=== PATIENT | male | born 1980 | race Caucasian/White ===

== ENCOUNTER 2017-12-19 07:53 | Inpatient (IN) | payer SELFPAY ==
[~2017-12-19] VITALS: Ht 167.6 cm; Wt 67.7 kg
[2017-12-19] VITALS (9 sets, daily range): BP systolic 111–130; BP diastolic 57–85; PULSE 82–141; RESP 16–18; TEMP 97.4–98.9; O2SAT 98–100
[2017-12-19] MEDS ORDERED: SODIUM CHLOR 0.9% 1000 ML INJ 1,000 ML IV ONE ×4 (08:04→11:15)
--- NOTE | 2017-12-19 08:14 | PD ---
HPI Chief Complaint: Psychiatric Symptoms Time Seen by Provider: 07:55 Travel History International Travel<30 days: No Contact w/Intl Traveler<30days: No Traveled to known affect area: No History of Present Illness HPI The patient is a 37-year-old male who presents to the emergency department via EMS with police as a Enciso act. According [place] the police [place] due to substance was taken. The patient was unable to control his body movements her mind according to the police affidavit. The patient was finally able to tell the police that he took drugs. The police therefore, placed the patient under a Enciso act. The patient admits using cocaine, Barby, methamphetamines, and heroin. He denies any current physical complaints, however, is a somewhat limited historian who appears to be under the influence of drugs. The patient is notably diaphoretic and tachycardic, he also appears somewhat agitated. 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 [facility] Past Medical History Narrative Medical Polysubstance abuse Past Surgical History Narrative Surgical Left leg surgery Social History Tobacco Use: Yes Substance Use: Yes Allergies-Medications (Allergen,Severity, Reaction): Coded Allergies: No Known Allergies (Unverified , 12/19/17) Review of Systems ROS Limitations: Clinical Condition Except as stated in HPI: all other systems reviewed are Neg Cardiovascular: Positive: Diaphoresis, No: Chest Pain or Discomfort Respiratory: No: Shortness of Breath Musculoskeletal: No: Myalgias Neurologic: Positive: Change in Mentation Psychiatric: Positive: Substance Abuse, No: Suicidal Ideations, Homicidal Ideation Physical Exam Narrative GENERAL: Awake, alert, agitated 37-year-old male who appears his stated age, somewhat diaphoretic. SKIN: Diaphoretic, covered in Infante. HEAD: Atraumatic. Normocephalic. EYES: Pupils equal and round. Mild injection bilaterally. ENT: No nasal bleeding or discharge. Dry mucous membranes. NECK: Trachea midline. No JVD. CARDIOVASCULAR: Regular, tachycardic with a heart rate in the 140s. Pulmonary: Bilateral breath sounds present. GASTROINTESTINAL: Abdomen soft, non-tender, nondistended. MUSCULOSKELETAL: No obvious deformities. No clubbing. No cyanosis. No edema. Well-healed scar in the lateral aspect of the left lower extremity. NEUROLOGICAL: Awake and alert. No obvious cranial nerve deficits. Motor grossly within normal limits. Normal speech. PSYCHIATRIC: Appears agitated. Data Data Last Documented VS Vital Signs Date Time Temp Pulse Resp B/P (MAP) Pulse Ox O2 Delivery O2 Flow Rate FiO2 12/19/17 13:10 108 18 112/66 (81) 100 Nasal Cannula 2.00 12/19/17 08:38 98.9 Orders Orders Electrocardiogram (12/19/17 08:04) Complete Blood Count With Diff (12/19/17 08:04) Comprehensive Metabolic Panel (12/19/17 08:04) Prothrombin Time / Inr (Pt) (12/19/17 08:04) Act Partial Throm Time (Ptt) (12/19/17 08:04) Urinalysis - C+S If Indicated (12/19/17 08:04) Iv Access Insert/Monitor (12/19/17 08:04) Ecg Monitoring (12/19/17 08:04) Oximetry (12/19/17 08:04) Psych Screen (12/19/17 08:04) Lorazepam Inj (Ativan Inj) (12/19/17 08:15) Sodium Chloride 0.9% Flush (Ns Flush) (12/19/17 08:15) Sodium Chlor 0.9% 1000 Ml Inj (Ns 1000 M (12/19/17 08:04) Drug Screen, Random Urine (12/19/17 08:04) Alcohol (Ethanol) (12/19/17 08:04) Salicylates (Aspirin) (12/19/17 08:04) Tylenol (Acetaminophen) (12/19/17 08:04) Creatine Kinase (Cpk) (12/19/17 08:04) Sodium Chlor 0.9% 1000 Ml Inj (Ns 1000 M (12/19/17 08:15) Lorazepam Inj (Ativan Inj) (12/19/17 08:15) Restraints Non-Violent ABEBE.Q3H (12/19/17 08:46) CKMB (12/19/17 08:16) CKMB% (12/19/17 08:16) Dextrose 50% In Dora (Syr) Inj (D50w (Syr (12/19/17 09:50) Dextrose 50% In Dora (Syr) Inj (D50w (Syr (12/19/17 10:00) Sodium Chlor 0.9% 1000 Ml Inj (Ns 1000 M (12/19/17 10:15) Basic Metabolic Panel (Bmp) (12/19/17 14:00) Creatine Kinase (Cpk) (12/19/17 14:00) Complete Blood Count With Diff (12/19/17 14:00) Sodium Chlor 0.9% 1000 Ml Inj (Ns 1000 M (12/19/17 11:15) Lorazepam Inj (Ativan Inj) (12/19/17 11:45) CKMB (12/19/17 14:28) CKMB% (12/19/17 14:28) Sodium Chlor 0.9% 1000 Ml Inj (Ns 1000 M (12/19/17 15:45) Admit Order (Ed Use Only) (12/19/17 16:03) Labs Laboratory Tests Test 12/19/17 08:16 12/19/17 08:31 12/19/17 14:28 White Blood Count 26.2 TH/MM3 Red Blood Count 5.11 MIL/MM3 Hemoglobin 15.6 GM/DL Hematocrit 46.2 % Mean Corpuscular Volume 90.5 FL Mean Corpuscular Hemoglobin 30.6 PG Mean Corpuscular Hemoglobin Concent 33.8 % Red Cell Distribution Width 13.3 % Platelet Count 328 TH/MM3 Mean Platelet Volume 8.4 FL Neutrophils (%) (Auto) 79.2 % Lymphocytes (%) (Auto) 4.0 % Monocytes (%) (Auto) 16.4 % Eosinophils (%) (Auto) 0.0 % Basophils (%) (Auto) 0.4 % Neutrophils # (Auto) 20.8 TH/MM3 Lymphocytes # (Auto) 1.0 TH/MM3 Monocytes # (Auto) 4.3 TH/MM3 Eosinophils # (Auto) 0.0 TH/MM3 Basophils # (Auto) 0.1 TH/MM3 CBC Comment AUTO DIFF Differential Comment AUTO DIFF CONFIRMED Prothrombin Time 10.7 SEC Prothromb Time International Ratio 1.1 RATIO Activated Partial Thromboplast Time 21.2 SEC Blood Urea Nitrogen 29 MG/DL 31 MG/DL Creatinine 2.35 MG/DL 1.64 MG/DL Random Glucose 41 MG/DL 83 MG/DL Total Protein 8.5 GM/DL Albumin 4.4 GM/DL Calcium Level 9.2 MG/DL 7.6 MG/DL Alkaline Phosphatase 75 U/L Aspartate Amino Transf (AST/SGOT) 78 U/L Alanine Aminotransferase (ALT/SGPT) 69 U/L Total Bilirubin 1.9 MG/DL Sodium Level 145 MEQ/L 145 MEQ/L Potassium Level 3.8 MEQ/L 5.2 MEQ/L Chloride Level 108 MEQ/L 116 MEQ/L Carbon Dioxide Level 21.0 MEQ/L 17.4 MEQ/L Anion Gap 16 MEQ/L 12 MEQ/L Estimat Glomerular Filtration Rate 31 ML/MIN 47 ML/MIN Total Creatine Kinase 717 U/L 2550 U/L Creatine Kinase MB 22.5 NG/ML 80.2 NG/ML Creatine Kinase MB % 3.1 % 3.1 % Salicylates Level LESS THAN 1.7 MG/DL Acetaminophen Level LESS THAN 2.0 MCG/ML Ethyl Alcohol Level LESS THAN 3 MG/DL Urine Color YELLOW Urine Turbidity HAZY Urine pH 6.5 Urine Specific [place] 1.035 Urine Protein 100 mg/dL Urine Glucose (UA) 70 mg/dL Urine Ketones TRACE mg/dL Urine Occult Blood TRACE Urine Nitrite NEG Urine Bilirubin NEG Urine Urobilinogen LESS THAN 2.0 MG/DL Urine Leukocyte Esterase NEG Urine RBC 2 /hpf Urine WBC 3 /hpf Urine Squamous Epithelial Cells <1 /hpf Urine Amorphous Sediment RARE Urine Mucus FEW /lpf Microscopic Urinalysis Comment CULT NOT INDICATED Urine Opiates Screen NEG Urine Barbiturates Screen NEG Urine Amphetamines Screen POS Urine Benzodiazepines Screen NEG Urine Cocaine Screen POS Urine Cannabinoids Screen NEG MDM Medical Decision Making Medical Screen Exam Complete: Yes Emergency Medical Condition: Yes Medical Record Reviewed: Yes Interpretation(s) EKG reveals sinus tachycardia with a heart rate of 144. Laboratory Tests Test 12/19/17 08:16 12/19/17 08:31 12/19/17 14:28 White Blood Count 26.2 TH/MM3 Red Blood Count 5.11 MIL/MM3 Hemoglobin 15.6 GM/DL Hematocrit 46.2 % Mean Corpuscular Volume 90.5 FL Mean Corpuscular Hemoglobin 30.6 PG Mean Corpuscular Hemoglobin Concent 33.8 % Red Cell Distribution Width 13.3 % Platelet Count 328 TH/MM3 Mean Platelet Volume 8.4 FL Neutrophils (%) (Auto) 79.2 % Lymphocytes (%) (Auto) 4.0 % Monocytes (%) (Auto) 16.4 % Eosinophils (%) (Auto) 0.0 % Basophils (%) (Auto) 0.4 % Neutrophils # (Auto) 20.8 TH/MM3 Lymphocytes # (Auto) 1.0 TH/MM3 Monocytes # (Auto) 4.3 TH/MM3 Eosinophils # (Auto) 0.0 TH/MM3 Basophils # (Auto) 0.1 TH/MM3 CBC Comment AUTO DIFF Differential Comment AUTO DIFF CONFIRMED Prothrombin Time 10.7 SEC Prothromb Time International Ratio 1.1 RATIO Activated Partial Thromboplast Time 21.2 SEC Blood Urea Nitrogen 29 MG/DL 31 MG/DL Creatinine 2.35 MG/DL 1.64 MG/DL Random Glucose 41 MG/DL 83 MG/DL Total Protein 8.5 GM/DL Albumin 4.4 GM/DL Calcium Level 9.2 MG/DL 7.6 MG/DL Alkaline Phosphatase 75 U/L Aspartate Amino Transf (AST/SGOT) 78 U/L Alanine Aminotransferase (ALT/SGPT) 69 U/L Total Bilirubin 1.9 MG/DL Sodium Level 145 MEQ/L 145 MEQ/L Potassium Level 3.8 MEQ/L 5.2 MEQ/L Chloride Level 108 MEQ/L 116 MEQ/L Carbon Dioxide Level 21.0 MEQ/L 17.4 MEQ/L Anion Gap 16 MEQ/L 12 MEQ/L Estimat Glomerular Filtration Rate 31 ML/MIN 47 ML/MIN Total Creatine Kinase 717 U/L 2550 U/L Creatine Kinase MB 22.5 NG/ML Creatine Kinase MB % 3.1 % Salicylates Level LESS THAN 1.7 MG/DL Acetaminophen Level LESS THAN 2.0 MCG/ML Ethyl Alcohol Level LESS THAN 3 MG/DL Urine Color YELLOW Urine Turbidity HAZY Urine pH 6.5 Urine Specific [place] 1.035 Urine Protein 100 mg/dL Urine Glucose (UA) 70 mg/dL Urine Ketones TRACE mg/dL Urine Occult Blood TRACE Urine Nitrite NEG Urine Bilirubin NEG Urine Urobilinogen LESS THAN 2.0 MG/DL Urine Leukocyte Esterase NEG Urine RBC 2 /hpf Urine WBC 3 /hpf Urine Squamous Epithelial Cells <1 /hpf Urine Amorphous Sediment RARE Urine Mucus FEW /lpf Microscopic Urinalysis Comment CULT NOT INDICATED Urine Opiates Screen NEG Urine Barbiturates Screen NEG Urine Amphetamines Screen POS Urine Benzodiazepines Screen NEG Urine Cocaine Screen POS Urine Cannabinoids Screen NEG Differential Diagnosis Differential diagnosis includes polysubstance abuse, dehydration, rhabdomyolysis , substance-induced mood disorder, psychosis, electrolyte abnormality, encephalopathy. Narrative Course IV was established, labs are drawn and sent, the patient was placed on cardiac telemetry monitoring and continuous pulse oximetry monitoring. The patient was administered Ativan 2 mg intravenously. The patient was also administered 2 L of IV fluids. CPK, salicylate, and acetaminophen level was sent to lab. Psychiatric evaluation was ordered. The patient required a second dose of Ativan 2 mg intravenously and soft restraints secondary to his agitation. The patient's CPK was 717, creatinine was greater than 2. The patient was administered a total of 4 L of IV fluids. A repeat BMP was performed at 2 PM. The patient's kidney function did improve, however, his CK is now greater than 2600. The patient's potassium also went from 3.8 to 5.2 despite 4 L of IV fluids. It appears the patient continues to have muscle breakdown, will require continued IV fluids and monitoring of his potassium level, creatinine, and CPK. Therefore, the patient will be admitted to medical service. I discussed the patient with Dr. Kahn who agrees with admission. Physician Communication Physician Communication I discussed the patient with Dr. Kahn who agrees with admission. Diagnosis Primary Impression: Acute kidney injury Additional Impressions: Rhabdomyolysis Qualified Codes: M62.82 - Rhabdomyolysis Polysubstance abuse Substance induced mood disorder Admitting Information Admitting Physician Requests: Admit Condition: Stable Papito Zhang MD Dec 19, 2017 08:14
[2017-12-19] MEDS ORDERED: LORazepam 2 MG/ML VIAL IV PUSH ONE ×3 (08:15→11:45)
[2017-12-19] MEDS ORDERED: SODIUM CHLORIDE 0.9% FLUSH 10 ML FLUSH IVF PRN (08:15)
[2017-12-19 09:15] LABS: AUTOMATED NEUTROPHIL # 20.8 TH/MM3 (1.8-7.7); BASOPHIL # 0.1 TH/MM3 (0-0.2); BASOPHIL % 0.4 % (0.0-2.0); HEMATOCRIT 46.2 % (39.0-51.0); HEMOGLOBIN 15.6 GM/DL (13.0-17.0); MEAN CELL VOLUME 90.5 FL (80.0-100.0); MEAN CORPUSCULAR HEMOGLOBIN 30.6 PG (27.0-34.0); MEAN CORPUSCULAR HGB CONC 33.8 % (32.0-36.0); MEAN PLATELET VOLUME 8.4 FL (7.0-11.0); MONO % 16.4 % (0.0-8.0); MONOCYTE # 4.3 TH/MM3 (0-0.9); NEUT % 79.2 % (16.0-70.0); PLATELET COUNT 328 TH/MM3 (150-450); RED BLOOD COUNT 5.11 MIL/MM3 (4.50-5.90); RED CELL DISTRIBUTION WIDTH 13.3 % (11.6-17.2); WHITE BLOOD COUNT 26.2 TH/MM3 (4.0-11.0)
[2017-12-19 09:18] LABS: AMORPHOUS SEDIMENT, URINE RARE; BILIRUBIN, URINE NEG (NEG); BLOOD, URINE TRACE (NEG); GLUCOSE,URINE 70 mg/dL (NEG); KETONE, URINE TRACE mg/dL (NEG); MUCUS URINE FEW /lpf (OCC); NITRITE,URINE NEG (NEG); PH, URINE 6.5 (5.0-8.5); SQUAMOUS EPITHELIAL CELL URINE <1 /hpf (0-5); URINE COLOR YELLOW (YELLW/STRAW); URINE LEUKOCYTE ESTERASE NEG (NEG)
[2017-12-19 09:23] LABS: INTERNATIONAL NORMALIZED RATIO 1.1 RATIO; PROTHROMBIN TIME - PATIENT 10.7 SEC (9.8-11.6)
[2017-12-19 09:46] LABS: ALBUMIN 4.4 GM/DL (3.4-5.0); ALKALINE PHOSPHATASE 75 U/L (45-117); ALT (GPT) 69 U/L (12-78); AST (GOT) 78 U/L (15-37); BLOOD UREA NITROGEN 29 MG/DL (7-18); CALCIUM 9.2 MG/DL (8.5-10.1); CHLORIDE 108 MEQ/L (98-107); CREATININE 2.35 MG/DL (0.60-1.30); GLOMERULAR FILTRATION RATE 31 ML/MIN (>89); SODIUM (NA) 145 MEQ/L (136-145); TOTAL BILIRUBIN ADULT 1.9 MG/DL (0.2-1.0); TOTAL PROTEIN 8.5 GM/DL (6.4-8.2)
[2017-12-19 09:47] LABS: ACETAMINOPHEN LESS THAN 2.0 MCG/ML (10.0-30.0)
[2017-12-19 09:49] LABS: GLUCOSE,RANDOM 41 MG/DL (74-106)
[2017-12-19] MEDS ORDERED: DEXTROSE 50% IN WATER 50 ML SYRINGE ONE (09:50)
[2017-12-19] MEDS ORDERED: DEXTROSE 50% IN WATER 50 ML SYRINGE IV PUSH ONE (10:00)
[2017-12-19 15:18] LABS: BICARBONATE 17.4 MEQ/L (21.0-32.0); CALCIUM 7.6 MG/DL (8.5-10.1); CREATININE 1.64 MG/DL (0.60-1.30)
[2017-12-19] MEDS: SODIUM CHLOR 0.9% 1000 ML INJ 1,000 ML IV SCH ×2 (16:37→23:16)
--- NOTE | 2017-12-19 17:07 | HHI.HP ---
[facility] Primary Care Physician No Primary Care Physician Admission Diagnosis Rhabdomyolysis, acute kidney injury, polysubstance abuse Diagnoses: Chief Complaint: Fernie acted for confusion Travel History International Travel<30 Days: No Contact w/Intl Traveler <30 Da: No Traveled to Known Affected Are: No History of Present Illness This is a 37-year-old male presented emergency department Fernie acted after the police found the patient unable to communicate but with spontaneous movement of extremities. The patient admitted to using drugs hence the patient was Enciso acted and then was brought to the hospital. Patient admits to using cocaine, Barby, methamphetamine and heroin. No current complaints. Patient is awake, alert and oriented but a little confused, somewhat a poor historian under the influence of drugs. He is mildly diaphoretic and tachycardic but otherwise unremarkable. He further denies any chest pain, shortness of breath, nausea, vomiting, abdominal pain or headaches. Review of Systems ROS Limitations: Altered Mental Status, Poor Historian Past Family Social History Past Medical History Polysubstance abuse Past Surgical History Left ankle surgery Reported Medications None Allergies: Coded Allergies: No Known Allergies (Unverified , 12/19/17) Family History Cannot remember, difficult to obtain because of patient's mental status Social History He smokes, cannot quantify at this point, drinks alcohol. Uses multiple illicit drugs. Physical Exam Vital Signs Vital Signs Date Time Temp Pulse Resp B/P (MAP) Pulse Ox O2 Delivery O2 Flow Rate FiO2 12/19/17 13:10 108 18 112/66 (81) 100 Nasal Cannula 2.00 12/19/17 11:09 118 18 111/70 (84) 100 Nasal Cannula 2.00 12/19/17 10:18 123 18 118/57 (77) 100 Room Air 12/19/17 09:07 138 16 118/57 (77) 98 Nasal Cannula 2.00 12/19/17 08:39 140 18 99 Nasal Cannula 2.00 12/19/17 08:38 98.9 141 18 130/72 (91) 98 Room Air Physical Exam Not in distress, in mild confusional state but oriented, mildly diaphoretic. PERRL, pink conjunctiva, mild injection, covered in Infante. Nose without bleeding, airway patent, oropharynx clear, dry mucous membranes Supple neck Tachycardic, regular rhythm, no murmurs gallops or rubs appreciated. Clear to auscultation and symmetric bilaterally, normal respiratory effort. Normal bowel sounds, soft, non-tender, nondistended, no guarding. Extremities without clubbing, cyanosis, or edema. Well-healed scar in the lateral aspect of the left lower extremities. No rash of generalized distribution. Skin is warm and dry. AAO ended to place and person but not to date, knows the president of [facility]. No cranial nerve deficits, moves all 4 extremities, no focal neurologic deficits, normal speech. Mildly agitated and confused. Laboratory Laboratory Tests Test 12/19/17 08:16 12/19/17 08:31 12/19/17 14:28 White Blood Count 26.2 Red Blood Count 5.11 Hemoglobin 15.6 Hematocrit 46.2 Mean Corpuscular Volume 90.5 Mean Corpuscular Hemoglobin 30.6 Mean Corpuscular Hemoglobin Concent 33.8 Red Cell Distribution Width 13.3 Platelet Count 328 Mean Platelet Volume 8.4 Neutrophils (%) (Auto) 79.2 Lymphocytes (%) (Auto) 4.0 Monocytes (%) (Auto) 16.4 Eosinophils (%) (Auto) 0.0 Basophils (%) (Auto) 0.4 Neutrophils # (Auto) 20.8 Lymphocytes # (Auto) 1.0 Monocytes # (Auto) 4.3 Eosinophils # (Auto) 0.0 Basophils # (Auto) 0.1 CBC Comment AUTO DIFF Differential Comment AUTO DIFF CONFIRMED Prothrombin Time 10.7 Prothromb Time International Ratio 1.1 Activated Partial Thromboplast Time 21.2 Blood Urea Nitrogen 29 31 Creatinine 2.35 1.64 Random Glucose 41 83 Total Protein 8.5 Albumin 4.4 Calcium Level 9.2 7.6 Alkaline Phosphatase 75 Aspartate Amino Transf (AST/SGOT) 78 Alanine Aminotransferase (ALT/SGPT) 69 Total Bilirubin 1.9 Sodium Level 145 145 Potassium Level 3.8 5.2 Chloride Level 108 116 Carbon Dioxide Level 21.0 17.4 Anion Gap 16 12 Estimat Glomerular Filtration Rate 31 47 Total Creatine Kinase 717 2550 Creatine Kinase MB 22.5 80.2 Creatine Kinase MB % 3.1 3.1 Salicylates Level LESS THAN 1.7 Acetaminophen Level LESS THAN 2.0 Ethyl Alcohol Level LESS THAN 3 Urine Color YELLOW Urine Turbidity HAZY Urine pH 6.5 Urine Specific [place] 1.035 Urine Protein 100 Urine Glucose (UA) 70 Urine Ketones TRACE Urine Occult Blood TRACE Urine Nitrite NEG Urine Bilirubin NEG Urine Urobilinogen LESS THAN 2.0 Urine Leukocyte Esterase NEG Urine RBC 2 Urine WBC 3 Urine Squamous Epithelial Cells <1 Urine Amorphous Sediment RARE Urine Mucus FEW Microscopic Urinalysis Comment CULT NOT INDICATED Urine Opiates Screen NEG Urine Barbiturates Screen NEG Urine Amphetamines Screen POS Urine Benzodiazepines Screen NEG Urine Cocaine Screen POS Urine Cannabinoids Screen NEG Result Diagram: 12/19/1716 12/19/17 1428 Caprini VTE Risk Assessment Caprini VTE Risk Assessment: No/Low Risk (score <= 1) Caprini Risk Assessment Model Point Value = 1 Point Value = 2 Point Value = 3 Point Value = 5 Age 41-60 Minor surgery BMI > 25 kg/m2 Swollen legs Varicose veins or History of unexplained or recurrent spontaneous Oral contraceptives or hormone replacement Sepsis (< 1 month) Serious lung disease, including pneumonia (< 1 month) Abnormal pulmonary function Acute myocardial infarction Congestive heart failure (< 1 month) History of inflammatory bowel disease Medical patient at bed rest Age 61-74 Arthroscopic surgery Major open surgery (> 45 min) Laparoscopic surgery (> 45 min) Malignancy Confined to bed (> 72 hours) Immobilizing plaster cast Central venous access Age >= 75 History of VTE Family history of VTE Factor V Leiden Prothrombin [id number] Lupus anticoagulant Anticardiolipin antibodies Elevated serum homocysteine Heparin-induced thrombocytopenia Other congenital or acquired thrombophilia Stroke (< 1 month) Elective arthroplasty Hip, pelvis, or leg fracture Acute spinal cord injury (< 1 month) Prophylaxis Regimen Total Risk Factor Score Risk Level Prophylaxis Regimen 0-1 Low Early ambulation 2 Moderate Order ONE of the following: *Sequential Compression Device (SCD) *Heparin 5000 units SQ BID 3-4 Higher Order ONE of the following medications: *Heparin 5000 units SQ TID *Enoxaparin/Lovenox 40 mg SQ daily (WT < 150 kg, CrCl > 30 mL/min) *Enoxaparin/Lovenox 30 mg SQ daily (WT < 150 kg, CrCl > 10-29 mL/min) *Enoxaparin/Lovenox 30 mg SQ BID (WT < 150 kg, CrCl > 30 mL/min) AND/OR *Sequential Compression Device (SCD) 5 or more Highest Order ONE of the following medications: *Heparin 5000 units SQ TID (Preferred with Epidurals) *Enoxaparin/Lovenox 40 mg SQ daily (WT < 150 kg, CrCl > 30 mL/min) *Enoxaparin/Lovenox 30 mg SQ daily (WT < 150 kg, CrCl > 10-29 mL/min) *Enoxaparin/Lovenox 30 mg SQ BID (WT < 150 kg, CrCl > 30 mL/min) AND *Sequential Compression Device (SCD) Assessment and Plan Assessment and Plan This is a 37-year-old male with history of polysubstance abuse admitted for agitation because of substance abuse Acute renal failure secondary to rhabdomyolysis-after 4 L of fluids, patient's creatinine is better but CK and potassium still increasing denoting continued my site breakdown. Continue IVF with LR, recheck CK and BMP tomorrow. EKG showed sinus tachycardia. Monitor urine output. Toxic metabolic encephalopathy-secondary to drug use, Fernie reza, consult psychiatry, start on Ativan as needed IV. Polysubstance abuse-tox screen positive for amphetamine, cocaine, negative for Tylenol and salicylates. Hyperkalemia-recheck potassium in 6 hours, IVF as above. Metabolic acidosis-IVF as above Hypercalcemia-replaced Leukocytosis-likely secondary to physiological stress DVT prophylaxis: Low risk Physician Certification 2 Midnight Certification Type: Admission for Inpatient Services Order for Inpatient Services The services are ordered in accordance with Medicare regulations or non- Medicare payer requirements, as applicable. In the case of services not specified as inpatient-only, they are appropriately provided as inpatient services in accordance with the 2-midnight benchmark. Estimated LOS (days): 2 days is the estimated time the patient will need to remain in the hospital, assuming treatment plan goals are met and no additional complications. Post-Hospital Plan: Home Artis Kahn MD Dec 19, 2017 17:06
[2017-12-19] MEDS ORDERED: LACTULOSE SYRUP 20 GM/30 ML CUP PO PRN (17:15)
[2017-12-19] MEDS ORDERED: LORazepam 2 MG/ML VIAL IV PUSH PRN (17:15)
[2017-12-19] MEDS ORDERED: SODIUM CHLORIDE 0.9% FLUSH 10 ML FLUSH IV FLUSH PRN (17:15)
[2017-12-19] MEDS ORDERED: ACETAMINOPHEN 325 MG TAB PO PRN (17:15)
[2017-12-19] MEDS ORDERED: NALOXONE HCL 0.4 MG/ML AMP IV PUSH PRN (17:15)
[2017-12-19] MEDS ORDERED: BISACODYL 10 MG SUPP RECTAL PRN (17:15)
[2017-12-19] MEDS ORDERED: MAGNESIUM HYDROXIDE SUSP 30 ML CUP PO PRN (17:15)
[2017-12-19] MEDS ORDERED: SENNOSIDES 8.6 MG TAB PO PRN (17:15)
[2017-12-19] MEDS: LACTATED RINGER'S 1000 ML INJ 1,000 ML IV SCH ×2 (17:39→22:00)
[2017-12-19] MEDS ORDERED: CALCIUM GLUCONATE INJ 1 GM in DEXTROSE 5% IN WATER 100ML INJ 100 ML IV ONE ×2 (18:00)
[2017-12-19 21:53] LABS: BASOPHIL # 0.2 TH/MM3 (0-0.2); BASOPHIL % 1.5 % (0.0-2.0); EOSINOPHIL % 0.2 % (0.0-4.0); HEMATOCRIT 41.2 % (39.0-51.0); HEMOGLOBIN 14.3 GM/DL (13.0-17.0); LYMPH % 15.3 % (9.0-44.0); LYMPHOCYTE # 2.1 TH/MM3 (1.0-4.8); MEAN CELL VOLUME 91.3 FL (80.0-100.0); MEAN CORPUSCULAR HEMOGLOBIN 31.6 PG (27.0-34.0); MEAN CORPUSCULAR HGB CONC 34.6 % (32.0-36.0); MEAN PLATELET VOLUME 8.8 FL (7.0-11.0); MONO % 16.3 % (0.0-8.0); MONOCYTE # 2.2 TH/MM3 (0-0.9); NEUT % 66.7 % (16.0-70.0); PLATELET COUNT 206 TH/MM3 (150-450); RED BLOOD COUNT 4.51 MIL/MM3 (4.50-5.90); RED CELL DISTRIBUTION WIDTH 13.6 % (11.6-17.2); WHITE BLOOD COUNT 13.5 TH/MM3 (4.0-11.0)
[2017-12-19] MEDS: SODIUM CHLORIDE 0.9% FLUSH 10 ML FLUSH IV FLUSH SCH (22:00)
[2017-12-19] MEDS: DOCUSATE SODIUM 50 MG/SENNA 8.6 MG TAB PO SCH (22:00)
[2017-12-20] VITALS: BP 125/70; PULSE 90; RESP 18; TEMP 97.9; O2SAT 99
[2017-12-20] MEDS: LACTATED RINGER'S 1000 ML INJ 1,000 ML IV SCH ×5 (02:31→20:53)
[2017-12-20 04:00] VITALS: BP 130/74; PULSE 82; RESP 18; TEMP 98.2; O2SAT 97
[2017-12-20] MEDS: SODIUM CHLOR 0.9% 1000 ML INJ 1,000 ML IV SCH (07:45)
[2017-12-20 08:00] VITALS: BP 128/79; PULSE 84; RESP 18; TEMP 97.6; O2SAT 99
--- NOTE | 2017-12-20 10:05 | HHI.PR ---
Subjective Remarks The patient was resting comfortably in bed. He said he was drinking too much with his friends and did some drugs. He does not remember much else. He says he does not typically use drugs. Discussed with nursing. Objective Vitals Vital Signs Date Time Temp Pulse Resp B/P (MAP) Pulse Ox O2 Delivery O2 Flow Rate FiO2 12/20/17 08:00 97.6 84 18 128/79 (95) 99 12/20/17 04:00 98.2 82 18 130/74 (92) 97 12/20/17 04:00 98.2 82 18 130/74 (92) 97 12/20/17 00:00 97.9 90 18 125/70 (88) 99 12/20/17 00:00 97.9 90 18 125/70 (88) 99 12/19/17 20:00 97.4 93 18 117/65 (82) 98 12/19/17 18:30 98.6 82 18 122/85 (97) 98 12/19/17 17:56 102 18 116/78 (91) 98 Room Air 12/19/17 13:10 108 18 112/66 (81) 100 Nasal Cannula 2.00 12/19/17 11:09 118 18 111/70 (84) 100 Nasal Cannula 2.00 12/19/17 10:18 123 18 118/57 (77) 100 Room Air I/O 12/19/17 12/19/17 12/19/17 12/20/17 12/20/17 12/20/17 07:00 15:00 23:00 07:00 15:00 23:00 # Voids 1 3 Result Diagram: 12/19/17 2049 12/19/17 1428 Objective Remarks Gen: Not in distress HEENT: PERRLA, nose without bleeding, airway patent, oropharynx clear, dry mucous membranes Cardiac: Tachycardic, regular rhythm, no murmurs gallops or rubs appreciated. Pulmonary: Clear to auscultation and symmetric bilaterally, normal respiratory effort. GI: Normal bowel sounds, soft, non-tender, nondistended, no guarding. Extremities: without clubbing, cyanosis, or edema. Well-healed scar in the lateral aspect of the left lower extremity. Skin: No rash of generalized distribution. Skin is warm and dry. Neuro: Awake and alert. No cranial nerve deficits, moves all 4 extremities, no focal neurologic deficits, normal speech. A/P Assessment and Plan Acute renal failure/ Rhabdomyolysis/ Metabolic acidosis CPK has been increasing. Creatinine improving. - Continue IVFs. - Monitor urine output. Toxic metabolic encephalopathy Secondary to drug use. The pt was Fernie acted. - consult psychiatry. Polysubstance abuse Tox screen positive for amphetamine, cocaine, negative for Tylenol and salicylates. Pt endorses drinking alcohol. - cessation instruction. - CIWA protocol. Leukocytosis Likely secondary to physiological stress. Afebrile. - follow CBC. Hypoglycemia Glucose 41 upon arrival. Likely s/t substance use. - ADAT. - follow BMP. DVT prophylaxis: Ambulation Scott Arvizu DO Dec 20, 2017 10:05
[2017-12-20] MEDS ORDERED: LORazepam 2 MG/ML VIAL IV PUSH PRN ×2 (10:15)
[2017-12-20] MEDS ORDERED: LORazepam 2 MG TAB PO PRN (10:15)
[2017-12-20] MEDS ORDERED: FLUMAZENIL 0.5 MG/5 ML VIAL IV PUSH PRN (10:15)
[2017-12-20] MEDS ORDERED: LORazepam 1 MG TAB PO PRN (10:15)
[2017-12-20] MEDS: DOCUSATE SODIUM 50 MG/SENNA 8.6 MG TAB PO SCH ×2 (10:54→20:54)
[2017-12-20] MEDS: SODIUM CHLORIDE 0.9% FLUSH 10 ML FLUSH IV FLUSH SCH ×2 (10:54→20:53)
[2017-12-20 12:00] VITALS: BP 125/73; PULSE 88; RESP 18; TEMP 97.9; O2SAT 98
[2017-12-20 12:07] LABS: ALBUMIN 3.1 GM/DL (3.4-5.0); ALKALINE PHOSPHATASE 54 U/L (45-117); ALT (GPT) 104 U/L (12-78); AST (GOT) 242 U/L (15-37); BICARBONATE 23.4 MEQ/L (21.0-32.0); BLOOD UREA NITROGEN 25 MG/DL (7-18); CALCIUM 8.2 MG/DL (8.5-10.1); CHLORIDE 107 MEQ/L (98-107); CREATININE 1.13 MG/DL (0.60-1.30); GLOMERULAR FILTRATION RATE 73 ML/MIN (>89); SODIUM (NA) 140 MEQ/L (136-145); TOTAL BILIRUBIN ADULT 1.1 MG/DL (0.2-1.0); TOTAL PROTEIN 6.5 GM/DL (6.4-8.2)
[2017-12-20 13:15] LABS: GLUCOSE,RANDOM 106 MG/DL (74-106)
[2017-12-20] MEDS ORDERED: POTASSIUM CHLORIDE 20 MEQ CONTROLLED RELEASE TAB PO ONE (14:15)
--- NOTE | 2017-12-20 15:04 | EKG ---
Date Performed: 12/19/2017 Time Performed: 08:39:19 PTAGE: 37 years EKG: SINUS TACHYCARDIA BORDERLINE RIGHT AXIS DEVIATION ABNORMAL RHYTHM ECG NO PREVIOUS TRACING DOCTOR: Ross Xavier Interpretating Date/Time 12/20/2017 15:04:40
[2017-12-20 16:00] VITALS: BP_SYST 124; BP_SYST 137; BP_DIAS 54; BP_DIAS 74; PULSE 91; RESP 18; TEMP 98.2; O2SAT 97; O2SAT 99
[2017-12-20 20:00] VITALS: BP 117/70; PULSE 87; RESP 18; TEMP 98.1; O2SAT 97
[2017-12-21] VITALS: BP 123/65; PULSE 93; RESP 18; TEMP 97.9; O2SAT 92
[2017-12-21 04:00] VITALS: BP 138/73; PULSE 67; RESP 18; TEMP 97.4; O2SAT 98
[2017-12-21] MEDS: LACTATED RINGER'S 1000 ML INJ 1,000 ML IV SCH ×3 (04:05→17:11)
[2017-12-21 07:52] LABS: ALBUMIN 2.7 GM/DL (3.4-5.0); ALT (GPT) 93 U/L (12-78); AST (GOT) 157 U/L (15-37); BICARBONATE 24.9 MEQ/L (21.0-32.0); BLOOD UREA NITROGEN 15 MG/DL (7-18); CALCIUM 8.1 MG/DL (8.5-10.1); CHLORIDE 106 MEQ/L (98-107); CREATININE 0.95 MG/DL (0.60-1.30); GLOMERULAR FILTRATION RATE 89 ML/MIN (>89); GLUCOSE,RANDOM 81 MG/DL (74-106); SODIUM (NA) 139 MEQ/L (136-145)
[2017-12-21 08:00] VITALS: BP 124/84; PULSE 77; RESP 18; TEMP 97.4; O2SAT 97
[2017-12-21 08:12] LABS: ALKALINE PHOSPHATASE 46 U/L (45-117); TOTAL BILIRUBIN ADULT 0.7 MG/DL (0.2-1.0); TOTAL PROTEIN 6.1 GM/DL (6.4-8.2)
[2017-12-21] MEDS: DOCUSATE SODIUM 50 MG/SENNA 8.6 MG TAB PO SCH (08:23)
[2017-12-21] MEDS: SODIUM CHLORIDE 0.9% FLUSH 10 ML FLUSH IV FLUSH SCH (08:23)
[2017-12-21 12:00] VITALS: BP 129/72; PULSE 79; RESP 18; TEMP 98; O2SAT 97
--- NOTE | 2017-12-21 13:38 | PD.PSY.CON ---
Provisional Diagnosis Admission Date Dec 19, 2017 at 16:05 [place] I. Polysubstance dependence including methamphetamines, heroin, alcohol, cocaine, history of ADHD [place] II. Unspecified personality disorder [place] III. No significant medical History of Present Illness Service Psychiatry Consult Requested By Medicine Reason for Consult Under Enciso act Primary Care Physician No Primary Care Physician HPI The patient is a 37-year-old man, domiciled in a alf house, single , employed, with psychiatric history of ADHD, polysubstance dependence including cocaine, heroin, alcohol, amphetamines, no previous psychiatric hospitalizations, no previous suicidal attempts, he has been Enciso acted before with similar presentations, no significant medical history, who presented emergency department Fernie acted after the police found the patient unable to communicate but with spontaneous movement of extremities. The patient admitted to using drugs hence the patient was Enciso acted and then was brought to the hospital. Patient admits to using cocaine, Barby, methamphetamine and heroin. No current complaints. Patient is awake, alert and oriented but a little confused, somewhat a poor historian under the influence of drugs. He is mildly diaphoretic and tachycardic but otherwise unremarkable. He further denies any chest pain, shortness of breath, nausea, vomiting, abdominal pain or headaches. EMR was reviewed. The case was discussed with primary medical attending and also with medical student Franci. On psychiatric evaluation the patient is calm, cooperative, a little bit irritable. The patient reports that he does not really remember the reason he was brought to the hospital. He says that after being sober for many weeks, he has been living in a sober house, he relapsed yesterday and used multiple drugs with intentions to "just get high and constitution party". She reports that in any occasion he tried to commit suicide. He reports good mood, he is future oriented, stating that he wants to be discharged and go back to the alf house to continue his rehabilitation process. He denies anhedonia, hopelessness, helplessness, worthlessness, denies suicidal and homicidal ideation, he denies visual and auditory hallucinations. The patient is oriented 3. No acute withdrawal symptoms present at this moment. He reports the use of methamphetamines, heroin, cocaine, he says that he has been sober for about a month now, but relapsed yesterday. Patient has history of incarcerations. Review of Systems Constitutional: DENIES: Diaphoretic episodes, Fatigue, Fever, Weight gain, Weight loss, Chills, Dizziness, Change in appetite, Night Sweats Endocrine: DENIES: Heat/cold intolerance, Polydipsia, Polyuria, Polyphagia Eyes: DENIES: Blurred vision, Diplopia, Eye inflammation, Eye pain, Vision loss , Photosensitivity, Double Vision Ears, nose, mouth, throat: DENIES: Tinnitus, Hearing loss, Vertigo, Nasal discharge, Oral lesions, Throat pain, Hoarseness, Ear Pain, Running Nose, Epistaxis, Sinus Pain, Toothache, Odynophagia Respiratory: DENIES: Apneas, Cough, Snoring, Wheezing, Hemoptysis, Sputum production, Shortness of breath Cardiovascular: DENIES: Chest pain, Palpitations, Syncope, Dyspnea on Exertion , PND, Lower Extremity Edema, Orthopnea, Claudication Genitourinary: DENIES: Sexual dysfunction, Urinary frequency, Urinary incontinence, Urgency, Hematuria, Dysuria, Nocturia, Penile Discharge, Testicular Pain, Testicular Swelling Musculoskeletal: DENIES: Joint pain, Muscle aches, Stiffness, Joint Swelling, Back pain, Neck pain Hematologic/lymphatic: DENIES: Bruising, Lymphadenopathy Immunologic/allergic: DENIES: Eczema, Urticaria Neurologic: DENIES: Abnormal gait, Headache, Localized weakness, Paresthesias, Seizures, Speech Problems, Tremor, Poor Balance Psychiatric: DENIES: Anxiety, Confusion, Mood changes, Depression, Hallucinations, Agitation, Suicidal Ideation, Homicidal Ideation, Delusions Past Family Social History Coded Allergies: No Known Allergies (Unverified , 12/19/17) Current Medications Medications (Trade) Dose Ordered Sig/Nikolas Route Start Time Stop Time Status Last Admin (NS Flush) 2 ml UNSCH PRN IVF 12/19/17 08:15 Lactated Ringer's 1,000 ml @ 200 mls/hr Q5H IV 12/19/17 17:03 12/21/17 04:05 (NS Flush) 2 ml UNSCH PRN IV FLUSH 12/19/17 17:15 12/20/17 20:53 (NS Flush) 2 ml BID IV FLUSH 12/19/17 21:00 12/20/17 20:53 (Tylenol) 650 mg Q4H PRN PO 12/19/17 17:15 (Narcan Inj) 0.4 mg UNSCH PRN IV PUSH 12/19/17 17:15 (Adelina-Colace) 1 tab BID PO 12/19/17 21:00 12/21/17 08:23 (Milk Of Magnesia Liq) 30 ml Q12H PRN PO 12/19/17 17:15 (Senokot) 17.2 mg Q12H PRN PO 12/19/17 17:15 (Dulcolax Supp) 10 mg DAILY PRN RECTAL 12/19/17 17:15 (Lactulose Liq) 30 ml DAILY PRN PO 12/19/17 17:15 (Romazicon Inj) 0.2 mg Q1M PRN IV PUSH 12/20/17 10:15 (Ativan) 1 mg Q4H PRN PO 12/20/17 10:15 (Ativan) 2 mg Q2H PRN PO 12/20/17 10:15 (Ativan Inj) 2 mg Q1H PRN IV PUSH 12/20/17 10:15 (Ativan Inj) 2 mg Q15M PRN IV PUSH 12/20/17 10:15 Family Psych History No family psychiatric history Social History Patient was born and raised in [facility], he lives in a alf house here [facility], single, unemployed, his highest level of education is some college Patient's Strengths (min. 2) Verbal communication Physical Exam No tremors, no EPS, no psychomotor agitation retardation at the moment Vital Signs Vital Signs Date Time Temp Pulse Resp B/P (MAP) Pulse Ox O2 Delivery O2 Flow Rate FiO2 12/21/17 08:00 97.4 77 18 124/84 (97) 97 12/19/17 17:56 Room Air 12/19/17 13:10 2.00 I/O 12/21/17 12/21/17 12/22/17 08:00 16:00 00:00 Output Total 1200 ml Balance -1200 ml Lab Results Test 12/21/17 07:10 Blood Urea Nitrogen 15 MG/DL Creatinine 0.95 MG/DL Random Glucose 81 MG/DL Total Protein 6.1 GM/DL Albumin 2.7 GM/DL Calcium Level 8.1 MG/DL Alkaline Phosphatase 46 U/L Aspartate Amino Transf (AST/SGOT) 157 U/L Alanine Aminotransferase (ALT/SGPT) 93 U/L Total Bilirubin 0.7 MG/DL Sodium Level 139 MEQ/L Potassium Level 4.1 MEQ/L Chloride Level 106 MEQ/L Carbon Dioxide Level 24.9 MEQ/L Anion Gap 8 MEQ/L Estimat Glomerular Filtration Rate 89 ML/MIN Total Creatine Kinase 1366 U/L Creatine Kinase MB 34.1 NG/ML Creatine Kinase MB % 2.5 % Mental Status Examination Appearance: Appropriate Consciousness: Alert Orientation: x4 Motor Activity: Normal gait Speech: Unremarkable Language: Adequate Fund of Knowledge: Adequate Attention and Concentration: Adequate Memory: Unremarkable Mood: Appropriate Affect: Appropriate Thought Process & Associations: Intact Thought Content: Appropriate Hallucination Type: None Delusion Type: None Suicidal Ideation: No Suicidal Plan: No Suicidal Intention: No Homicidal Ideation: No Homicidal Plan: No Homicidal Intention: No Insight: Adequate Judgment: Adequate Assessment & Plan Problem List: (1) Polysubstance abuse ICD Codes: F19.10 - Other psychoactive substance abuse, uncomplicated Status: Acute Assessment & Plan: On psychiatric evaluation today the patient does not present any acute, significant or concerning neuropsychiatric symptoms that require an immediate psychiatric intervention. The patient denies symptoms of depression, anxiety, jimmy and psychosis. The patient denies suicidal and homicidal ideation, he denies visual and auditory hallucinations. Recent suicidal statement was most probably the result of acute multi-substance intoxication. Patient also have clinically significant present cluster B traits , most probably consistent with an antisocial personality disorder. He does not meet criteria for psychiatric admission, but he does have an increased risk of substance withdrawal. Will place in [facility] protocol. Heroine withdrawal can be treated symptomatically with clonidine 0.2 mg every 8 hours as needed autonomic instability, Benadryl 50 mg for hypersalivation, lacrimation, anxiety , ibuprofen 400 mg for pain in his body. Brief supportive psychotherapy, psychoeducation and motivation provided. Enciso act will be lifted Assessment & Plan Estimated LOS: Dwaine Abreu MD Dec 21, 2017 13:38
[2017-12-21 14:23] LABS: HEMATOCRIT 41.3 % (39.0-51.0); HEMOGLOBIN 14.1 GM/DL (13.0-17.0); MEAN CELL VOLUME 91.6 FL (80.0-100.0); MEAN CORPUSCULAR HEMOGLOBIN 31.3 PG (27.0-34.0); MEAN CORPUSCULAR HGB CONC 34.1 % (32.0-36.0); MEAN PLATELET VOLUME 8.2 FL (7.0-11.0); PLATELET COUNT 199 TH/MM3 (150-450); RED BLOOD COUNT 4.51 MIL/MM3 (4.50-5.90); RED CELL DISTRIBUTION WIDTH 13.4 % (11.6-17.2); WHITE BLOOD COUNT 5.5 TH/MM3 (4.0-11.0)
--- NOTE | 2017-12-21 15:09 | HHI.PR ---
Subjective Remarks The patient said that he spoke with psychiatry earlier. He said he was feeling tired. He has not been ambulating. No acute complaints at this time. Discussed with nursing. Objective Vitals Vital Signs Date Time Temp Pulse Resp B/P (MAP) Pulse Ox O2 Delivery O2 Flow Rate FiO2 12/21/17 12:00 98.0 79 18 129/72 (91) 97 12/21/17 08:00 97.4 77 18 124/84 (97) 97 12/21/17 04:00 97.4 67 18 138/73 (94) 98 12/21/17 00:00 97.9 93 18 123/65 (84) 92 12/20/17 20:00 98.1 87 18 117/70 (86) 97 12/20/17 16:00 98.2 91 18 137/74 (95) 97 I/O 12/20/17 12/20/17 12/20/17 12/21/17 12/21/17 12/21/17 07:00 15:00 23:00 07:00 15:00 23:00 Output Total 1200 ml Balance -1200 ml Output Urine Total 1200 ml # Voids 3 Result Diagram: 12/21/17 1346 12/21/17 0710 Objective Remarks Gen: Not in distress HEENT: PERRLA, nose without bleeding, airway patent, oropharynx clear, dry mucous membranes Cardiac: Regular rate and rhythm, no murmurs gallops or rubs appreciated. Pulmonary: Clear to auscultation and symmetric bilaterally, normal respiratory effort. GI: Normal bowel sounds, soft, non-tender, nondistended, no guarding. Extremities: without clubbing, cyanosis, or edema. Well-healed scar in the lateral aspect of the left lower extremity. Skin: No rash of generalized distribution. Skin is warm and dry. Neuro: Awake and alert. No cranial nerve deficits, moves all 4 extremities, no focal neurologic deficits, normal speech. A/P Assessment and Plan Acute renal failure/ Rhabdomyolysis/ Metabolic acidosis Creatinine back to baseline. CPK improving. - Continue IVFs. - Monitor urine output. - repeat CPK in AM. Toxic metabolic encephalopathy Secondary to drug use. The pt was Enciso acted. Psychiatry consult appreciated. - Enciso act lifted. Polysubstance abuse Tox screen positive for amphetamine, cocaine, negative for Tylenol and salicylates. Pt endorses drinking alcohol. - cessation instruction. - CIWA protocol. - clonidine and Benadryl as needed for withdrawal. Leukocytosis Likely secondary to physiological stress. Afebrile. - follow CBC. Resolved. Hypoglycemia Glucose 41 upon arrival. Likely s/t substance use. - ADAT. - follow BMP. Improved. DVT prophylaxis: Ambulation Discharge Planning Would discharge home in the AM if CPK continues to improve. Encourage ambulation. Scott Arvizu DO Dec 21, 2017 15:09
[2017-12-21] MEDS ORDERED: diphenhydrAMINE HCL 50 MG CAP PO PRN (15:15)
[2017-12-21] MEDS ORDERED: cloNIDine HCL 0.2 MG TAB PO PRN (15:15)
--- NOTE | 2017-12-21 15:22 | HHI.DCPOC ---
Discharge Care Plan Diagnosis: (1) Substance induced mood disorder (2) Acute kidney injury (3) Polysubstance abuse (4) Rhabdomyolysis Goals to Promote Your Health * To prevent worsening of your condition and complications * To maintain your health at the optimal level Directions to Meet Your Goals Take your medications as prescribed Follow your dietary instruction Follow activity as directed Keep your appointments as scheduled Take your immunizations and boosters as scheduled If your symptoms worsen call your PCP, if no PCP go to Urgent Care Center or Emergency Room Smoking is Dangerous to Your Health. Avoid second hand smoke Call the 24-hour hour crisis hotline for domestic abuse at Scott Arvizu DO Dec 21, 2017 15:22
--- NOTE | 2017-12-21 15:26 | HHI.DS ---
Discharge Summary Admission Date Dec 19, 2017 at 16:05 Discharge Date: Dec 22, 2017 Admitting Diagnosis Rhabdomyolysis, acute kidney injury, polysubstance abuse (1) Rhabdomyolysis ICD Code: M62.82 - Rhabdomyolysis Diagnosis: Principal Status: Acute (2) Polysubstance abuse ICD Code: F19.10 - Other psychoactive substance abuse, uncomplicated Diagnosis: Principal Status: Acute (3) Acute kidney injury ICD Code: N17.9 - Acute kidney failure, unspecified Diagnosis: Principal Status: Acute (4) Substance induced mood disorder ICD Code: F19.94 - Other psychoactive substance use, unspecified with psychoactive substance-induced mood disorder Status: Acute Procedures None Brief History - From Admission This is a 37-year-old male presented emergency department Enciso acted after the police found the patient unable to communicate but with spontaneous movement of extremities. The patient admitted to using drugs hence the patient was Enciso acted and then was brought to the hospital. Patient admits to using cocaine, Barby, methamphetamine and heroin. No current complaints. Patient is awake, alert and oriented but a little confused, somewhat a poor historian under the influence of drugs. He is mildly diaphoretic and tachycardic but otherwise unremarkable. He further denies any chest pain, shortness of breath, nausea, vomiting, abdominal pain or headaches. CBC/BMP: 12/21/17 1346 12/21/17 0710 Significant Findings Laboratory Tests Test 12/19/17 08:16 12/19/17 08:31 12/19/17 14:28 12/19/17 20:49 White Blood Count 26.2 TH/MM3 (4.0-11.0) 13.5 TH/MM3 (4.0-11.0) Neutrophils (%) (Auto) 79.2 % (16.0-70.0) Lymphocytes (%) (Auto) 4.0 % (9.0-44.0) Monocytes (%) (Auto) 16.4 % (0.0-8.0) 16.3 % (0.0-8.0) Neutrophils # (Auto) 20.8 TH/MM3 (1.8-7.7) 9.0 TH/MM3 (1.8-7.7) Monocytes # (Auto) 4.3 TH/MM3 (0-0.9) 2.2 TH/MM3 (0-0.9) Activated Partial Thromboplast Time 21.2 SEC (24.3-30.1) Blood Urea Nitrogen 29 MG/DL (7-18) 31 MG/DL (7-18) Creatinine 2.35 MG/DL (0.60-1.30) 1.64 MG/DL (0.60-1.30) Random Glucose 41 MG/DL (74-106) Total Protein 8.5 GM/DL (6.4-8.2) Aspartate Amino Transf (AST/SGOT) 78 U/L (15-37) Total Bilirubin 1.9 MG/DL (0.2-1.0) Chloride Level 108 MEQ/L (98-107) 116 MEQ/L (98-107) Anion Gap 16 MEQ/L (5-15) Estimat Glomerular Filtration Rate 31 ML/MIN (>89) 47 ML/MIN (>89) Total Creatine Kinase 717 U/L (39-308) 2550 U/L (39-308) Creatine Kinase MB 22.5 NG/ML (0.5-3.6) 80.2 NG/ML (0.5-3.6) Salicylates Level LESS THAN 1.7 MG/DL Acetaminophen Level LESS THAN 2.0 MCG/ML Urine Turbidity HAZY (CLEAR) Urine Protein 100 mg/dL (NEG-TRACE) Urine Glucose (UA) 70 mg/dL (NEG) Urine Ketones TRACE mg/dL (NEG) Urine Occult Blood TRACE (NEG) Urine Mucus FEW /lpf (OCC) Urine Amphetamines Screen POS (NEG) Urine Cocaine Screen POS (NEG) Calcium Level 7.6 MG/DL (8.5-10.1) Potassium Level 5.2 MEQ/L (3.5-5.1) Carbon Dioxide Level 17.4 MEQ/L (21.0-32.0) Test 12/20/17 10:21 12/21/17 07:10 12/21/17 13:46 Blood Urea Nitrogen 25 MG/DL (7-18) Albumin 3.1 GM/DL (3.4-5.0) 2.7 GM/DL (3.4-5.0) Calcium Level 8.2 MG/DL (8.5-10.1) 8.1 MG/DL (8.5-10.1) Aspartate Amino Transf (AST/SGOT) 242 U/L (15-37) 157 U/L (15-37) Alanine Aminotransferase (ALT/SGPT) 104 U/L (12-78) 93 U/L (12-78) Total Bilirubin 1.1 MG/DL (0.2-1.0) Estimat Glomerular Filtration Rate 73 ML/MIN (>89) Total Creatine Kinase 3662 U/L (39-308) 1366 U/L (39-308) 1089 U/L (39-308) Creatine Kinase MB 121.8 NG/ML (0.5-3.6) 34.1 NG/ML (0.5-3.6) 23.2 NG/ML (0.5-3.6) Total Protein 6.1 GM/DL (6.4-8.2) PE at Discharge Gen: Not in distress HEENT: PERRLA, nose without bleeding, airway patent, oropharynx clear, dry mucous membranes Cardiac: Regular rate and rhythm, no murmurs gallops or rubs appreciated. Pulmonary: Clear to auscultation and symmetric bilaterally, normal respiratory effort. GI: Normal bowel sounds, soft, non-tender, nondistended, no guarding. Extremities: without clubbing, cyanosis, or edema. Well-healed scar in the lateral aspect of the left lower extremity. Skin: No rash of generalized distribution. Skin is warm and dry. Neuro: Awake and alert. No cranial nerve deficits, moves all 4 extremities, no focal neurologic deficits, normal speech. Hospital Course Acute renal failure/ Rhabdomyolysis/ Metabolic acidosis Creatinine back to baseline after IVFs. CPK improving. Continue IVFs. Encourage PO intake of free fluids. We will repeat CPK level in AM and if improved the pt will be discharged home. Toxic metabolic encephalopathy Secondary to drug use. The pt was Enciso acted. Psychiatry was consulted and the Enciso act was lifted. Recommend outpt psych follow-up. Polysubstance abuse Tox screen positive for amphetamine, cocaine, negative for Tylenol and salicylates. Pt endorses drinking alcohol. He received cessation instruction. He was placed on CIWA protocol. He received clonidine and Benadryl as needed for withdrawal. Elevated LFTs S/t above. Improving. Follow CMP. Leukocytosis Resolved. Hypoglycemia Glucose 41 upon arrival. Resolved with advancing of diet. Pt Condition on Discharge: Stable Discharge Disposition: Discharge Home Discharge Time: <= 30 minutes Discharge Instructions DIET: Follow Instructions for: As Tolerated, No Restrictions Activities you can perform: Regular-No Restrictions Follow up Referrals: PCP Follow-up - 1 Week Psychiatry Adult - 2 Weeks Scott Arvizu DO Dec 21, 2017 15:26
[2017-12-21 16:00] VITALS: BP 121/78; PULSE 88; RESP 18; TEMP 98.6; O2SAT 97
[2017-12-21] MEDS ORDERED: [UNRECOGNIZED DRUG - CODE] IV (16:21)
[2017-12-21] MEDS ORDERED: SODIUM CHLOR 0.9% 1000 ML INJ 1,000 ML IV ONE (16:30)
== END 2017-12-21 18:11 | DRG 682 ==
LOC: NEPC 07:53 → NEDA 16:05 → N05A 18:12
PROVIDERS: ADMIT Hospitalist; ATTEND Hospitalist
DX: N17.9 Acute kidney failure, unspecified (principal); G92 Toxic encephalopathy; M62.82 Rhabdomyolysis; E87.2 Acidosis; F19.14 Other psychoactive substance abuse with psychoactive substance-induced mood disorder; T50.905A Adverse effect of unspecified drugs, medicaments and biological substances, initial encounter; R00.0 Tachycardia, unspecified; D72.829 Elevated white blood cell count, unspecified; E16.2 Hypoglycemia, unspecified; F90.9 Attention-deficit hyperactivity disorder, unspecified type; F60.2 Antisocial personality disorder; F17.200 Nicotine dependence, unspecified, uncomplicated
CPT/HCPCS: 76937; 80048; 80053; 80307; 81001; 82550; 82552; 85025; 85027; 85610; 85730; 93005; 96361; 96374; J0610; J2060; J7030; J7120

== ENCOUNTER 2017-12-21 17:54 | Inpatient (IN) | payer SELFPAY ==
[~2017-12-21 17:54] MED LIST: [UNRECOGNIZED DRUG - CODE] IV
[2017-12-22 05:51] VITALS: BP 117/72; PULSE 73; RESP 17; TEMP 97.9; O2SAT 96
[2017-12-22] MEDS ORDERED: hydrOXYzine HCL 50 MG TAB PO PRN (10:30)
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
== END 2017-12-22 15:55 | disposition home or self-care (01) | DRG 882 ==
LOC: H4EA 18:12
PROVIDERS: ADMIT Psychiatry & Neurology Psychiatry; ATTEND Psychiatry & Neurology Psychiatry
DX: F43.25 Adjustment disorder with mixed disturbance of emotions and conduct (principal); F19.20 Other psychoactive substance dependence, uncomplicated; F60.2 Antisocial personality disorder; F17.210 Nicotine dependence, cigarettes, uncomplicated; Z62.810 Personal history of physical and sexual abuse in childhood; Z63.72 Alcoholism and drug addiction in family

== ENCOUNTER 2018-01-23 20:16 | Observation (INO) ==
[2018-01-23] MEDS ORDERED: Haloperidol Inj 5 MG/ML Ampul IV.PUSH ONE (20:19)
[2018-01-23] MEDS ORDERED: Haloperidol Inj 5 MG/ML Ampul ONE (20:20)
[2018-01-23] MEDS ORDERED: Sod Chloride 0.9% Inj 1,000 ML IV.SIG ONE ×4 (20:21→22:14)
--- NOTE | 2018-01-23 21:05 | ED ---
HPI General Chief Complaint: Overdose Stated Complaint: Evac/Od Time Seen by Provider: 01/23/18 20:43 Source: EMS Mode of arrival: EMS History of Present Illness HPI Narrative: Patient was found agitated thrashing about in a hotel room fighting EMS the room was completely disheveled patient is sweating profusely battling the paramedics they have to IM him ketamine 320 mg but still he is agitated they are waiting for the effects to kick in and then he is transported he is been placed in restraints he is aggressive diaphoretic obviously disoriented from some drug that he is taken patient is then sedated with Haldol and Ativan IV 5 mill grams Haldol IV , 2 mg of Ativan and he is then asleep temperature is 100.6 rectally he is given ice the axilla and the groin to decrease his body temperature he is now asleep will be observed CPK will be sent rule out rhabdomyolysis and he will be evaluated and observed and IgE hydration with 2 L normal saline Related Data Home Medications Medication Instructions Recorded Confirmed Unable to Obtain Home Meds 01/23/18 01/23/18 Allergies Allergy/AdvReac Type Severity Reaction Status Date / Time No Known Allergies Allergy Verified 01/23/18 20:19 Review of Systems ROS Unobtainable unobtainable due to mental status (Agitated and uncooperative aggressive behavior needs chemical restraint as well as physical soft limb restraints) PMFSH Social History Social History Substance History: Active Abuse Smoking Status: Unknown if ever smoked How Often Do You Have a Drink Containing Alcohol: Monthly or less Exam Narrative Exam Narrative: GENERAL: Agitated profusely sweating forehead to toes drenched thin body habitus staring mildly possibly the effects of ketamine IM or kicking [-] SKIN: Focused skin assessment hot skin diaphoretic patient has a laceration to the left hand index finger dorsum over the PIP HEAD: Atraumatic. Normocephalic. EYES: Pupils equal and round. No scleral icterus. No injection or drainage. ENT: No nasal bleeding or discharge. Mucous membranes pink and moist. NECK: Trachea midline. No JVD. CARDIOVASCULAR: Tachycardic. RESPIRATORY: No accessory muscle use. Clear to auscultation. Breath sounds equal bilaterally. GASTROINTESTINAL: Abdomen soft, non-tender, nondistended. Hepatic and splenic margins not palpable. MUSCULOSKELETAL: No obvious deformities. No clubbing. No cyanosis. No edema. left hand has finger lac to index dorsum over PIP NEUROLOGICAL: A agitated restrained staring wildly no obvious focal deficit Psych patient is obviously under the influence of some medication causing him to stare wildly aggressive behavior profuse sweating hot body temperature appears to be delusional under the influence of some intoxicants Course Hospital Course: Patient repeatedly awakened was screaming agitated thrashing needed to be re- sedated I gave him 2 of Ativan after the initial dose and I gave him 50 of Benadryl IV as well that he got 2 more of Ativan and still he was screaming and yelling after the 6 mg of Ativan he falls asleep and is able to be re-eval in the a.m. I will sign him out to the next oncoming attending he was fighting and I was not able to suture his finger but I was able to glue it sufficiently to close it so they will heal by secondary intention and decrease the risk of infection Initial Documented Vital Signs Temperature 100.6 F H 01/23/18 20:49 Pulse Rate 121 H 01/23/18 20:49 Respiratory Rate 16 01/23/18 20:49 Blood Pressure 112/60 01/23/18 20:49 Pulse Oximetry 92 L 01/23/18 20:49 Last Documented Vital Signs Temperature 97.9 F 01/26/18 11:54 Pulse Rate 73 01/26/18 11:54 Respiratory Rate 16 01/26/18 11:54 Blood Pressure 122/74 01/26/18 11:54 Pulse Oximetry 96 01/26/18 11:54 Medical Decision Making [facility] Narrative Medical decision making narrative: Patient CARE assume from Dr. Villagran at 0700, is a 37-year-old male presented in agitated delirium last night, likely substance-induced. He required heavy sedation to keep him from harming himself or others overnight, he has been in the emergency department for 10 hours prior to me assuming care, still fairly sedated in four-point restraints, gradually throughout the morning he is had slow return of normal mental status and is now out of four-point restraints at 10 AM. We will continue to monitor, did have some mild elevations of CK did receive IV fluids. We are attempting to re- check his CK however the patient is a very hard IV stick. At 1215 I have rechecked this patient, his CK is actually gone up significantly , this would represent a rhabdomyolysis possibly from substance-induced and possibly exacerbated by the use of restraints which was obligatory. Discussed with the patient who is still very groggy from the 7 mg of Ativan 50 of ketamine 2 mg of Haldol and 50 mg of Benadryl he received overnight. He was discussed with Dr. Khanna for admission to Dr. Lim and the resident service. Patient is adamant that he didn't take anything last night. Lab Data Result diagrams: 01/25/18 04:23 01/26/18 04:05 Lab Results 01/23/18 01/23/18 01/23/18 Range/Units 20:49 20:52 20:52 CBC w Diff WBC 13.4 H (4.0-11.0) th/mm3 Corrected WBC RBC 4.65 (4.50-5.90) mil/mm3 Hgb 14.4 (13.0-17.0) gm/dL Hct 41.5 (39.0-51.0) % MCV 89.3 (80.0-100.0) fL MCH 30.9 (27.0-34.0) pg MCHC 34.6 (32.0-36.0) % RDW 12.9 (11.6-17.2) % Plt Count 215 (150-450) th/mm3 MPV 8.4 (7.0-11.0) fL Prelim Diff (Auto) Immature Gran % (Auto) Neut % (Auto) 78.3 H (16.0-70.0) % Lymph % (Auto) 6.9 L (9.0-44.0) % [place] % (Auto) 14.3 H (0.0-8.0) % Eos % (Auto) 0.2 (0.0-4.0) % Baso % (Auto) 0.3 (0.0-2.0) % Immature Gran # (Auto) Neut # (Auto) 10.5 H (1.8-7.7) th/mm3 Lymph # (Auto) 0.9 L (1.0-4.8) th/mm3 [place] # (Auto) 1.9 H (0.0-0.9) th/mm3 Eos # (Auto) 0.0 (0.0-0.4) th/mm3 Baso # (Auto) 0.0 (0.0-0.2) th/mm3 WBC Differential . Diff Scan Seg Neuts % (Manual) Band Neuts % (Manual) Lymphocytes % (Manual) Atypical Lymphs % (Man) Monocytes % (Manual) Eosinophils % (Manual) Basophils % (Manual) Metamyelocytes % (Man) Myelocytes % (Man) Promyelocytes % (Man) Blast Cells % (Manual) Plasma Cell % (Manual) Other Cells % Abs Neuts (Manual) Nucleated RBCs/100 WBC Differential Comment Auto diff final Hypersegmented Neuts Smudge Cells Toxic Granulation Toxic Vacuolation Dohle Bodies Platelet Estimate Platelet Morphology RBC Morphology Dimorphic RBCs Polychromasia Basophilic Stippling Spherocytes Pappenheimer Bodies Sickle Cells Target Cells Tear Drop Cells Ovalocytes Stomatocytes Helmet Cells [place] Bodies [place] Cells Acanthocytes (Spur) Rouleaux Keratocytes Hematology Comments Sodium 141 (136-145) meq/L Potassium 3.8 (3.5-5.1) meq/L Chloride 103 (98-107) meq/L Carbon Dioxide 21.9 (21.0-32.0) meq/L Anion Gap 16 H (5-15) meq/L BUN 22 H (7-18) mg/dL Creatinine 1.82 H (0.60-1.30) mg/dL Estimated GFR 42 L (>89) mL/min POC Glucose 126 H (68-110) mg/dl Random Glucose 101 (74-106) mg/dL Lactic Acid (0.4-2.0) mmol/L Calcium 8.8 (8.5-10.1) mg/dL Total Bilirubin 1.0 (0.2-1.0) mg/dL AST 69 H (15-37) U/L ALT 56 (12-78) U/L Alkaline Phosphatase 65 (45-117) U/L Total Creatine Kinase (39-308) U/L CK-MB (CK-2) (0.5-3.6) ng/mL CK-MB (CK-2) % (0.0-4.0) % Total Protein 7.9 (6.4-8.2) g/dL Albumin 4.1 (3.4-5.0) g/dL Urine Color (Yellw/Straw) Urine Clarity (Clear) Urine pH (5.0-8.5) Ur Specific [place] (1.002-1.035) Urine Protein (Neg-Trace) mg/dL Urine Glucose (UA) (Negative) mg/dL Urine Ketones (Negative) mg/dL Urine Occult Blood (Negative) Urine Nitrate (Negative) Urine Bilirubin (Negative) Urine Urobilinogen (Less than 2) mg/dL Ur Leukocyte Esterase (Negative) Urine WBC (0-5) /hpf Urine Bacteria (None) /hpf Micro UA Comment Urine Culture Comments Urine Opiates Screen (Neg) Ur Barbiturates Screen (Neg) Ur Amphetamines Screen (Neg) U Benzodiazepines Scrn (Neg) Urine Cocaine Screen (Neg) U Cannabinoids Screen (Neg) 01/23/18 01/23/18 01/23/18 Range/Units 20:52 23:57 23:57 CBC w Diff WBC (4.0-11.0) th/mm3 Corrected WBC RBC (4.50-5.90) mil/mm3 Hgb (13.0-17.0) gm/dL Hct (39.0-51.0) % MCV (80.0-100.0) fL MCH (27.0-34.0) pg MCHC (32.0-36.0) % RDW (11.6-17.2) % Plt Count (150-450) th/mm3 MPV (7.0-11.0) fL Prelim Diff (Auto) Immature Gran % (Auto) Neut % (Auto) (16.0-70.0) % Lymph % (Auto) (9.0-44.0) % [place] % (Auto) (0.0-8.0) % Eos % (Auto) (0.0-4.0) % Baso % (Auto) (0.0-2.0) % Immature Gran # (Auto) Neut # (Auto) (1.8-7.7) th/mm3 Lymph # (Auto) (1.0-4.8) th/mm3 [place] # (Auto) (0.0-0.9) th/mm3 Eos # (Auto) (0.0-0.4) th/mm3 Baso # (Auto) (0.0-0.2) th/mm3 WBC Differential Diff Scan Seg Neuts % (Manual) Band Neuts % (Manual) Lymphocytes % (Manual) Atypical Lymphs % (Man) Monocytes % (Manual) Eosinophils % (Manual) Basophils % (Manual) Metamyelocytes % (Man) Myelocytes % (Man) Promyelocytes % (Man) Blast Cells % (Manual) Plasma Cell % (Manual) Other Cells % Abs Neuts (Manual) Nucleated RBCs/100 WBC Differential Comment Hypersegmented Neuts Smudge Cells Toxic Granulation Toxic Vacuolation Dohle Bodies Platelet Estimate Platelet Morphology RBC Morphology Dimorphic RBCs Polychromasia Basophilic Stippling Spherocytes Pappenheimer Bodies Sickle Cells Target Cells Tear Drop Cells Ovalocytes Stomatocytes Helmet Cells [place] Bodies Cassie Cells Acanthocytes (Spur) Rouleaux Keratocytes Hematology Comments Sodium (136-145) meq/L Potassium (3.5-5.1) meq/L Chloride (98-107) meq/L Carbon Dioxide (21.0-32.0) meq/L Anion Gap (5-15) meq/L BUN (7-18) mg/dL Creatinine (0.60-1.30) mg/dL Estimated GFR (>89) mL/min POC Glucose (68-110) mg/dl Random Glucose (74-106) mg/dL Lactic Acid 0.5 (0.4-2.0) mmol/L Calcium (8.5-10.1) mg/dL Total Bilirubin (0.2-1.0) mg/dL AST (15-37) U/L ALT (12-78) U/L Alkaline Phosphatase (45-117) U/L Total Creatine Kinase 1137 H 1643 H (39-308) U/L CK-MB (CK-2) 19.2 H 22.6 H (0.5-3.6) ng/mL CK-MB (CK-2) % 1.7 1.4 (0.0-4.0) % Total Protein (6.4-8.2) g/dL Albumin (3.4-5.0) g/dL Urine Color (Yellw/Straw) Urine Clarity (Clear) Urine pH (5.0-8.5) Ur Specific [place] (1.002-1.035) Urine Protein (Neg-Trace) mg/dL Urine Glucose (UA) (Negative) mg/dL Urine Ketones (Negative) mg/dL Urine Occult Blood (Negative) Urine Nitrate (Negative) Urine Bilirubin (Negative) Urine Urobilinogen (Less than 2) mg/dL Ur Leukocyte Esterase (Negative) Urine WBC (0-5) /hpf Urine Bacteria (None) /hpf Micro UA Comment Urine Culture Comments Urine Opiates Screen (Neg) Ur Barbiturates Screen (Neg) Ur Amphetamines Screen (Neg) U Benzodiazepines Scrn (Neg) Urine Cocaine Screen (Neg) U Cannabinoids Screen (Neg) 01/24/18 01/24/18 01/24/18 Range/Units 10:29 18:50 18:50 CBC w Diff WBC (4.0-11.0) th/mm3 Corrected WBC RBC (4.50-5.90) mil/mm3 Hgb (13.0-17.0) gm/dL Hct (39.0-51.0) % MCV (80.0-100.0) fL MCH (27.0-34.0) pg MCHC (32.0-36.0) % RDW (11.6-17.2) % Plt Count (150-450) th/mm3 MPV (7.0-11.0) fL Prelim Diff (Auto) Immature Gran % (Auto) Neut % (Auto) (16.0-70.0) % Lymph % (Auto) (9.0-44.0) % [place] % (Auto) (0.0-8.0) % Eos % (Auto) (0.0-4.0) % Baso % (Auto) (0.0-2.0) % Immature Gran # (Auto) Neut # (Auto) (1.8-7.7) th/mm3 Lymph # (Auto) (1.0-4.8) th/mm3 [place] # (Auto) (0.0-0.9) th/mm3 Eos # (Auto) (0.0-0.4) th/mm3 Baso # (Auto) (0.0-0.2) th/mm3 WBC Differential Diff Scan Seg Neuts % (Manual) Band Neuts % (Manual) Lymphocytes % (Manual) Atypical Lymphs % (Man) Monocytes % (Manual) Eosinophils % (Manual) Basophils % (Manual) Metamyelocytes % (Man) Myelocytes % (Man) Promyelocytes % (Man) Blast Cells % (Manual) Plasma Cell % (Manual) Other Cells % Abs Neuts (Manual) Nucleated RBCs/100 WBC Differential Comment Hypersegmented Neuts Smudge Cells Toxic Granulation Toxic Vacuolation Dohle Bodies Platelet Estimate Platelet Morphology RBC Morphology Dimorphic RBCs Polychromasia Basophilic Stippling Spherocytes Pappenheimer Bodies Sickle Cells Target Cells Tear Drop Cells Ovalocytes Stomatocytes Helmet Cells [place] Bodies Cassie Cells Acanthocytes (Spur) Rouleaux Keratocytes Hematology Comments Sodium (136-145) meq/L Potassium (3.5-5.1) meq/L Chloride (98-107) meq/L Carbon Dioxide (21.0-32.0) meq/L Anion Gap (5-15) meq/L BUN (7-18) mg/dL Creatinine (0.60-1.30) mg/dL Estimated GFR (>89) mL/min POC Glucose (68-110) mg/dl Random Glucose (74-106) mg/dL Lactic Acid (0.4-2.0) mmol/L Calcium (8.5-10.1) mg/dL Total Bilirubin (0.2-1.0) mg/dL AST (15-37) U/L ALT (12-78) U/L Alkaline Phosphatase (45-117) U/L Total Creatine Kinase 6730 H (39-308) U/L CK-MB (CK-2) 207.5 H (0.5-3.6) ng/mL CK-MB (CK-2) % 3.1 (0.0-4.0) % Total Protein (6.4-8.2) g/dL Albumin (3.4-5.0) g/dL Urine Color Yellow (Yellw/Straw) Urine Clarity Clear (Clear) Urine pH 5.0 (5.0-8.5) Ur Specific [place] 1.014 (1.002-1.035) Urine Protein Negative (Neg-Trace) mg/dL Urine Glucose (UA) Negative (Negative) mg/dL Urine Ketones 20 (Negative) mg/dL Urine Occult Blood Moderate H (Negative) Urine Nitrate Negative (Negative) Urine Bilirubin Negative (Negative) Urine Urobilinogen Less than 2 (Less than 2) mg/dL Ur Leukocyte Esterase Negative (Negative) Urine WBC Less than 1 (0-5) /hpf Urine Bacteria Rare H (None) /hpf Micro UA Comment Cath-culture ind Urine Culture Comments Cath-cult indicated Urine Opiates Screen Neg (Neg) Ur Barbiturates Screen Neg (Neg) Ur Amphetamines Screen Pos H (Neg) U Benzodiazepines Scrn Neg (Neg) Urine Cocaine Screen Neg (Neg) U Cannabinoids Screen Neg (Neg) 01/25/18 01/25/18 01/25/18 Range/Units 04:23 04:23 04:23 CBC w Diff Cancelled WBC Cancelled 9.3 (4.0-11.0) th/mm3 Corrected WBC Cancelled RBC Cancelled 4.74 (4.50-5.90) mil/mm3 Hgb Cancelled 14.4 (13.0-17.0) gm/dL Hct Cancelled 42.7 (39.0-51.0) % MCV Cancelled 90.0 (80.0-100.0) fL MCH Cancelled 30.4 (27.0-34.0) pg MCHC Cancelled 33.8 (32.0-36.0) % RDW Cancelled 13.7 (11.6-17.2) % Plt Count Cancelled 215 (150-450) th/mm3 MPV Cancelled 7.8 (7.0-11.0) fL Prelim Diff (Auto) Cancelled Immature Gran % (Auto) Cancelled Neut % (Auto) Cancelled 70.5 H (16.0-70.0) % Lymph % (Auto) Cancelled 15.7 (9.0-44.0) % [place] % (Auto) Cancelled 12.5 H (0.0-8.0) % Eos % (Auto) Cancelled 0.9 (0.0-4.0) % Baso % (Auto) Cancelled 0.4 (0.0-2.0) % Immature Gran # (Auto) Cancelled Neut # (Auto) Cancelled 6.5 (1.8-7.7) th/mm3 Lymph # (Auto) Cancelled 1.5 (1.0-4.8) th/mm3 [place] # (Auto) Cancelled 1.2 H (0.0-0.9) th/mm3 Eos # (Auto) Cancelled 0.1 (0.0-0.4) th/mm3 Baso # (Auto) Cancelled 0.0 (0.0-0.2) th/mm3 WBC Differential Cancelled . Diff Scan Cancelled Seg Neuts % (Manual) Cancelled Band Neuts % (Manual) Cancelled Lymphocytes % (Manual) Cancelled Atypical Lymphs % (Man) Cancelled Monocytes % (Manual) Cancelled Eosinophils % (Manual) Cancelled Basophils % (Manual) Cancelled Metamyelocytes % (Man) Cancelled Myelocytes % (Man) Cancelled Promyelocytes % (Man) Cancelled Blast Cells % (Manual) Cancelled Plasma Cell % (Manual) Cancelled Other Cells % Cancelled Abs Neuts (Manual) Cancelled Nucleated RBCs/100 WBC Cancelled Differential Comment Cancelled Auto diff final Hypersegmented Neuts Cancelled Smudge Cells Cancelled Toxic Granulation Cancelled Toxic Vacuolation Cancelled Dohle Bodies Cancelled Platelet Estimate Cancelled Platelet Morphology Cancelled RBC Morphology Cancelled Dimorphic RBCs Cancelled Polychromasia Cancelled Basophilic Stippling Cancelled Spherocytes Cancelled Pappenheimer Bodies Cancelled Sickle Cells Cancelled Target Cells Cancelled Tear Drop Cells Cancelled Ovalocytes Cancelled Stomatocytes Cancelled Helmet Cells Cancelled [place] Bodies Cancelled Cassie Cells Cancelled Acanthocytes (Spur) Cancelled Rouleaux Cancelled Keratocytes Cancelled Hematology Comments Cancelled Sodium 142 (136-145) meq/L Potassium 4.0 (3.5-5.1) meq/L Chloride 110 H (98-107) meq/L Carbon Dioxide 19.1 L (21.0-32.0) meq/L Anion Gap 13 (5-15) meq/L BUN 14 (7-18) mg/dL Creatinine 0.95 (0.60-1.30) mg/dL Estimated GFR 89 (>89) mL/min POC Glucose (68-110) mg/dl Random Glucose 59 L (74-106) mg/dL Lactic Acid (0.4-2.0) mmol/L Calcium 7.9 L D (8.5-10.1) mg/dL Total Bilirubin 0.9 (0.2-1.0) mg/dL AST 255 H (15-37) U/L ALT 89 H (12-78) U/L Alkaline Phosphatase 55 (45-117) U/L Total Creatine Kinase 4083 H (39-308) U/L CK-MB (CK-2) 149.6 H (0.5-3.6) ng/mL CK-MB (CK-2) % 3.7 (0.0-4.0) % Total Protein 6.2 L D (6.4-8.2) g/dL Albumin 2.9 L D (3.4-5.0) g/dL Urine Color (Yellw/Straw) Urine Clarity (Clear) Urine pH (5.0-8.5) Ur Specific [place] (1.002-1.035) Urine Protein (Neg-Trace) mg/dL Urine Glucose (UA) (Negative) mg/dL Urine Ketones (Negative) mg/dL Urine Occult Blood (Negative) Urine Nitrate (Negative) Urine Bilirubin (Negative) Urine Urobilinogen (Less than 2) mg/dL Ur Leukocyte Esterase (Negative) Urine WBC (0-5) /hpf Urine Bacteria (None) /hpf Micro UA Comment Urine Culture Comments Urine Opiates Screen (Neg) Ur Barbiturates Screen (Neg) Ur Amphetamines Screen (Neg) U Benzodiazepines Scrn (Neg) Urine Cocaine Screen (Neg) U Cannabinoids Screen (Neg) 01/25/18 01/26/18 Range/Units 17:00 04:05 CBC w Diff WBC (4.0-11.0) th/mm3 Corrected WBC RBC (4.50-5.90) mil/mm3 Hgb (13.0-17.0) gm/dL Hct (39.0-51.0) % MCV (80.0-100.0) fL MCH (27.0-34.0) pg MCHC (32.0-36.0) % RDW (11.6-17.2) % Plt Count (150-450) th/mm3 MPV (7.0-11.0) fL Prelim Diff (Auto) Immature Gran % (Auto) Neut % (Auto) (16.0-70.0) % Lymph % (Auto) (9.0-44.0) % [place] % (Auto) (0.0-8.0) % Eos % (Auto) (0.0-4.0) % Baso % (Auto) (0.0-2.0) % Immature Gran # (Auto) Neut # (Auto) (1.8-7.7) th/mm3 Lymph # (Auto) (1.0-4.8) th/mm3 [place] # (Auto) (0.0-0.9) th/mm3 Eos # (Auto) (0.0-0.4) th/mm3 Baso # (Auto) (0.0-0.2) th/mm3 WBC Differential Diff Scan Seg Neuts % (Manual) Band Neuts % (Manual) Lymphocytes % (Manual) Atypical Lymphs % (Man) Monocytes % (Manual) Eosinophils % (Manual) Basophils % (Manual) Metamyelocytes % (Man) Myelocytes % (Man) Promyelocytes % (Man) Blast Cells % (Manual) Plasma Cell % (Manual) Other Cells % Abs Neuts (Manual) Nucleated RBCs/100 WBC Differential Comment Hypersegmented Neuts Smudge Cells Toxic Granulation Toxic Vacuolation Dohle Bodies Platelet Estimate Platelet Morphology RBC Morphology Dimorphic RBCs Polychromasia Basophilic Stippling Spherocytes Pappenheimer Bodies Sickle Cells Target Cells Tear Drop Cells Ovalocytes Stomatocytes Helmet Cells [place] Bodies Cassie Cells Acanthocytes (Spur) Rouleaux Keratocytes Hematology Comments Sodium 142 142 (136-145) meq/L Potassium 3.7 3.6 (3.5-5.1) meq/L Chloride 108 H 107 (98-107) meq/L Carbon Dioxide 25.6 25.0 (21.0-32.0) meq/L Anion Gap 8 10 (5-15) meq/L BUN 14 11 (7-18) mg/dL Creatinine 1.05 0.84 (0.60-1.30) mg/dL Estimated GFR 79 L Greater than 89 (>89) mL/min POC Glucose (68-110) mg/dl Random Glucose 102 87 (74-106) mg/dL Lactic Acid (0.4-2.0) mmol/L Calcium 8.0 L 8.5 (8.5-10.1) mg/dL Total Bilirubin 0.6 (0.2-1.0) mg/dL AST 186 H (15-37) U/L ALT 85 H (12-78) U/L Alkaline Phosphatase 50 (45-117) U/L Total Creatine Kinase 3080 H (39-308) U/L CK-MB (CK-2) 61.7 H (0.5-3.6) ng/mL CK-MB (CK-2) % 2.0 (0.0-4.0) % Total Protein 6.2 L (6.4-8.2) g/dL Albumin 2.7 L (3.4-5.0) g/dL Urine Color (Yellw/Straw) Urine Clarity (Clear) Urine pH (5.0-8.5) Ur Specific [place] (1.002-1.035) Urine Protein (Neg-Trace) mg/dL Urine Glucose (UA) (Negative) mg/dL Urine Ketones (Negative) mg/dL Urine Occult Blood (Negative) Urine Nitrate (Negative) Urine Bilirubin (Negative) Urine Urobilinogen (Less than 2) mg/dL Ur Leukocyte Esterase (Negative) Urine WBC (0-5) /hpf Urine Bacteria (None) /hpf Micro UA Comment Urine Culture Comments Urine Opiates Screen (Neg) Ur Barbiturates Screen (Neg) Ur Amphetamines Screen (Neg) U Benzodiazepines Scrn (Neg) Urine Cocaine Screen (Neg) U Cannabinoids Screen (Neg) Imaging Data Radiologist's impression: Hand X-Ray 01/25/18 00:00 CONCLUSION: Unremarkable study. Hand X-Ray 01/25/18 00:00 CONCLUSION: Unremarkable study. Venous Doppler Study 01/25/18 00:00 CONCLUSION: 1. The study is negative for bilateral upper extremity deep venous thrombosis. Discharge Plan Discharge Disposition Patient Disposition: 30 Still Patient Discharge Condition Condition: Stable Discharge Order Discharge Orders: Discharge Order (Routine); Ordered 01/26/18 Ordered By: Vesna Ramirez Discharge Details Anticipated Discharge Date: 01/26/18 Discharge Comment: Patient to be discharge to [facility] rehab, spoke to patient's sponsor Andre who will be picking patient up from the hospital Diagnosis: Rhabdomyolysis Physicians Team ED Provider: Han Charlton Primary Care Provider: UNKNOWN, Attending Provider: Neda Lim Status ED Status: Left Department Discharge Information Discharge Date/Time: 01/25/18 04:31
[2018-01-23 21:25] LABS: Baso % (Auto) 0.3 % (0.0-2.0); Eos % (Auto) 0.2 % (0.0-4.0); Hematocrit 41.5 % (39.0-51.0); Hemoglobin 14.4 gm/dL (13.0-17.0); Lymph # (Auto) 0.9 th/mm3 (1.0-4.8); Lymph % (Auto) 6.9 % (9.0-44.0); Mean Corpuscular HGB Conc 34.6 % (32.0-36.0); Mean Corpuscular Hemoglobin 30.9 pg (27.0-34.0); Mean Corpuscular Volume 89.3 fL (80.0-100.0); Mean Platelet Volume 8.4 fL (7.0-11.0); Mono # (Auto) 1.9 th/mm3 (0.0-0.9); Mono % (Auto) 14.3 % (0.0-8.0); Neut # (Auto) 10.5 th/mm3 (1.8-7.7); Neut % (Auto) 78.3 % (16.0-70.0); Platelet Count 215 th/mm3 (150-450); Red Blood Count 4.65 mil/mm3 (4.50-5.90); Red Cell Distribution Width 12.9 % (11.6-17.2); White Blood Count 13.4 th/mm3 (4.0-11.0)
[2018-01-23 21:37] LABS: Albumin 4.1 g/dL (3.4-5.0); Anion Gap 16 meq/L (5-15); Aspartate Aminotransferase 69 U/L (15-37); Blood Urea Nitrogen 22 mg/dL (7-18); Calcium 8.8 mg/dL (8.5-10.1); Carbon Dioxide 21.9 meq/L (21.0-32.0); Chloride 103 meq/L (98-107); Glomerular Filtration Rate 42 mL/min (>89); Glucose,Random 101 mg/dL (74-106); Potassium 3.8 meq/L (3.5-5.1); Sodium 141 meq/L (136-145)
[2018-01-23 21:38] LABS: Alanine Aminotransferase 56 U/L (12-78)
[2018-01-23 21:41] LABS: Alkaline Phosphatase 65 U/L (45-117); Total Protein 7.9 g/dL (6.4-8.2)
[2018-01-23 22:24] LABS: CKMB Percent 1.7 % (0.0-4.0); Creatine Kinase MB 19.2 ng/mL (0.5-3.6)
[2018-01-24] MEDS ORDERED: Lidocaine 2% Inj 50 ML Vial NERV BLOCK ONE (01:08)
[2018-01-24 01:21] LABS: CKMB Percent 1.4 % (0.0-4.0); Creatine Kinase MB 22.6 ng/mL (0.5-3.6)
[2018-01-24] MEDS ORDERED: Ketamine Inj 200 MG/20 ML Vial IV.PUSH ONE (02:57)
[2018-01-24] MEDS ORDERED: Ketamine Inj 500 MG/10 ML Vial IV.PUSH ONE (03:30)
[2018-01-24] MEDS ORDERED: Sod Chloride 0.9% Inj 1,000 ML IV.SIG ONE ×2 (07:02)
[2018-01-24 11:42] LABS: CKMB Percent 3.1 % (0.0-4.0); Creatine Kinase MB 207.5 ng/mL (0.5-3.6)
--- NOTE | 2018-01-24 13:44 | P.HPFP ---
History of Present Illness Primary Care Physician: UNKNOWN <Neda Lim 01/25/18 12:38> UNKNOWN <Vesna Ramirez 01/24/18 13:44> History of Present Illness: Patient is a 37 yo M with Pmhx of multiple drug addiction, mixed disturbances of emotion and conduct and personality disorder. Patient minimally responsive. Not cooperative, not able to contribute to history. Majority of hpi obtained from chart review. Patient was brought in via [facility] from a hotel for disruptive behavior. He received ketamine on the field by EMS. Patient is believed to be to have been under the influence of stimulants. However patient denies any consumption of illicit drugs. In the ED patient had required restraints and multiple sedatives for combative behavior. Of note: Patient was recently hospitalized under psychiatry for substance abuse. UDS was positive for cocaine and amphetamines. At that time he had been Enciso acted which was later lifted.. He has previously been involved in detox program at [facility] and then progressed to a sober house. <Vesna Ramirez 01/24/18 17:21> - Diagnosis (1) Rhabdomyolysis (2) Substance abuse (3) Nutrition, metabolism, and development symptoms <Neda Lim 01/25/18 12:38> (1) Rhabdomyolysis (2) Substance abuse (3) Nutrition, metabolism, and development symptoms <Vesna Ramirez 01/24/18 16:40> Inpatient Certification: I certify that the inpatient services were ordered in accordance with Medicare regulations governing the order. This includes certification that hospital inpatient services are reasonable and necessary and in the case of services not specified as inpatient-only under 42 CFR 419.22(n), that they are appropriately provided as inpatient services in accordance to with the 2-midnight benchmark under 43 CFR 412.3(e) <Neda Lim 01/25/18 12:38> I certify that the inpatient services were ordered in accordance with Medicare regulations governing the order. This includes certification that hospital inpatient services are reasonable and necessary and in the case of services not specified as inpatient-only under 42 CFR 419.22(n), that they are appropriately provided as inpatient services in accordance to with the 2-midnight benchmark under 43 CFR 412.3(e) <Vesna Ramirez 01/24/18 13:44> [facility] - History History Provided By: Director Equipment / EMT <Vesna Ramirez 01/24/18 13:44> - Tobacco History Smoking Status: Unknown if ever smoked <Vesna Ramirez 01/24/18 13:44> - Alcohol History How Often Do You Have a Drink Containing Alcohol: Unable to Obtain <Vesna Ramirez 01/24/18 13:44> - Immunization History Tetanus Immunization: Unsure <Vesna Ramirez 01/24/18 13:44> Medications and Allergies Allergies Allergy/AdvReac Type Severity Reaction Status Date / Time No Known Allergies Allergy Verified 01/23/18 20:19 <Neda Lim - 01/25/18 12:38> Home Medications Medication Instructions Recorded Confirmed Type Unable to Obtain Home Meds 01/23/18 01/23/18 History <Neda Lim - 01/25/18 12:38> Active Medications: Active Medications Acetaminophen (Tylenol) 650 mg PO Q6H PRN PRN Reason: PAIN 1-10 AND/OR FEVER >101F Al Hydroxide/Mg Hydroxide (Milk Of Magnesia Liq) 30 ml PO Q12H PRN PRN Reason: Mild Constipation Bisacodyl (Dulcolax Supp) 10 mg RECTAL DAILY PRN PRN Reason: SEVERE CONSITIPATION Flumazenil (Romazecon Inj) 0.2 mg IV.PUSH Q1M PRN PRN Reason: OVERSEDATION Haloperidol Lactate (Haldol Inj) 1 mg IV.PUSH Q15M PRN PRN Reason: for severe agitation Lactated Ringer's (Lr 1000 Ml Inj) 1,000 mls @ 150 mls/hr IV.CONT .Q6H40M BLAKE Last Infusion: 01/25/18 01:52 Dose: 50 mls/hr Lactulose (Lactulose Liq) 30 ml PO DAILY PRN PRN Reason: SEVERE CONSITIPATION Lorazepam (Ativan) 1 mg PO Q4H PRN PRN Reason: for CIWA 8-10 Lorazepam (Ativan) 2 mg PO Q2H PRN PRN Reason: for CIWA 11-14 Lorazepam (Ativan Inj) 2 mg IV.PUSH Q2H PRN PRN Reason: for CIWA 11-14 Lorazepam (Ativan Inj) 2 mg IV.PUSH Q1H PRN PRN Reason: for CIWA 15-20 Lorazepam (Ativan Inj) 2 mg IV.PUSH Q15M PRN PRN Reason: for CIWA > 20 Lorazepam (Ativan Inj) 1 mg IV.PUSH Q4H PRN PRN Reason: for CIWA 8-10 Ondansetron HCl (Zofran Odt) 4 mg PO Q6H PRN PRN Reason: NAUSEA OR VOMITING Senna/Docusate Sodium (Adelina-Colace) 1 tab PO BID PRN PRN Reason: SEVERE CONSTIPATION Sennosides (Senokot) 17.2 mg PO Q12H PRN PRN Reason: Moderate Constipation <Neda Lim - 01/25/18 12:38> Exam Vital signs: Vital Signs 01/24/18 14:11 01/24/18 16:55 01/24/18 20:00 Temperature 97.6 F 98.5 F Pulse Rate 79 76 88 Respiratory Rate 18 16 18 Blood Pressure 142/78 H 137/84 125/72 Pulse Oximetry 98 98 99 01/25/18 00:00 01/25/18 01:30 01/25/18 01:40 Temperature 98.7 F Pulse Rate 82 90 90 Respiratory Rate 17 Blood Pressure 115/70 Pulse Oximetry 98 01/25/18 02:25 01/25/18 04:00 01/25/18 08:00 Temperature 98.5 F 98.2 F Pulse Rate 79 85 88 Respiratory Rate 17 20 Blood Pressure 126/65 118/60 Pulse Oximetry 97 97 Intake & Output 01/24/18 01/25/18 01/25/18 18:59 06:59 18:59 Intake Total 100 / 100 1120 / 1120 240 / 240 Output Total 750 / 750 550 / 550 Balance -650 / -650 570 / 570 240 / 240 Intake: IV 100 / 100 1000 / 1000 LR 1000 mL Inj 1,000 ML @ 150 100 / 100 1000 / 1000 mls/hr IV.CONT .Q6H40M [facility] Rx#: [id number] Oral 120 / 120 240 / 240 Output: Urine 750 / 750 550 / 550 <Neda Lim - 01/25/18 12:38> Vital Signs 01/23/18 20:49 01/23/18 21:12 01/23/18 22:00 Temperature 100.6 F H Pulse Rate 121 H 122 H 108 H Respiratory Rate 16 16 16 Blood Pressure 112/60 131/63 147/88 H Pulse Oximetry 92 L 98 98 01/23/18 22:34 01/24/18 00:00 01/24/18 03:00 Temperature Pulse Rate 106 H 86 94 H Respiratory Rate 16 16 16 Blood Pressure 162/90 H 170/109 H 148/79 H Pulse Oximetry 100 96 100 01/24/18 04:00 01/24/18 05:00 01/24/18 06:00 Temperature Pulse Rate 98 H 98 H 98 H Respiratory Rate 16 16 16 Blood Pressure 134/78 138/78 138/78 Pulse Oximetry 98 100 100 01/24/18 07:45 01/24/18 11:31 Temperature Pulse Rate 84 81 Respiratory Rate 18 18 Blood Pressure 145/76 H 132/78 Pulse Oximetry 100 98 Intake & Output 01/23/18 01/24/18 01/24/18 18:59 06:59 18:59 Weight 72.575 kg <Vesna Ramirez D 01/24/18 13:44> - Constitutional no acute distress, average body habitus <Vesna Ramirez D 01/24/18 17:21> - Routine HEENT Exam Head: Present: normocephalic, atraumatic <Vesna Ramirez D 01/24/18 17:21> Eye: Present: EOMI, PERRL <Vesna Ramirez D 01/24/18 17:21> ENT: Present: mucous membranes moist <Vesna Ramirez D 01/24/18 17:21> - Routine Neck Exam Present: supple, full ROM. Absent: JVD <Vesna Ramirez D 01/24/18 17:21> - Routine Chest/Breast/Axilla Exam Chest wall: Absent: tenderness <Vesna Ramirez D 01/24/18 17:21> - Routine Respiratory Exam Present: CTA bilaterally. Absent: accessory muscle use <Vesna Ramirez D 17:21> - Routine Cardiovascular Exam Present: RRR, S1, S2. Absent: murmur, gallop, rubs <Vesna Ramirez D 17:21> - Routine Abdominal Exam Present: soft, normoactive bowel sounds. Absent: tenderness, distended, guarding <AshleyVesna Bautista - 01/24/18 17:21> - Routine Extremities Exam Present: edema. Absent: cyanosis <LaureenVesna Michele - 01/24/18 17:21> Comments: Edematous hand BL, worse on Left hand. Neurovascularly intact BL. Patient able to move fingers BL. dressing wrapped around fifth digit of Left hand <Vesna Ramirez - 01/24/18 17:21> - Routine Skin Exam Absent: erythema <LaureenVesna zheng - 01/24/18 17:21> - Routine Neurological Exam Patient responsive to loud questioning however no responsive enough to provide appropriate responses <Luis ArmandoVesna joe - 01/24/18 17:21> Results - Labs Result diagrams: 01/25/18 04:23 01/25/18 04:23 <Neda Lim - 01/25/18 12:38> Abnormal lab results 01/24/18 01/24/18 01/25/18 Range/Units 18:50 18:50 04:23 Neut % (Auto) 70.5 H (16.0-70.0) % [place] % (Auto) 12.5 H (0.0-8.0) % [place] # (Auto) 1.2 H (0.0-0.9) th/mm3 Chloride (98-107) meq/L Carbon Dioxide (21.0-32.0) meq/L Random Glucose (74-106) mg/dL Calcium (8.5-10.1) mg/dL AST (15-37) U/L ALT (12-78) U/L Total Creatine Kinase (39-308) U/L CK-MB (CK-2) (0.5-3.6) ng/mL Total Protein (6.4-8.2) g/dL Albumin (3.4-5.0) g/dL Urine Occult Blood Moderate H (Negative) Urine Bacteria Rare H (None) /hpf Ur Amphetamines Screen Pos H (Neg) 01/25/18 Range/Units 04:23 Neut % (Auto) (16.0-70.0) % [place] % (Auto) (0.0-8.0) % [place] # (Auto) (0.0-0.9) th/mm3 Chloride 110 H (98-107) meq/L Carbon Dioxide 19.1 L (21.0-32.0) meq/L Random Glucose 59 L (74-106) mg/dL Calcium 7.9 L D (8.5-10.1) mg/dL AST 255 H (15-37) U/L ALT 89 H (12-78) U/L Total Creatine Kinase 4083 H (39-308) U/L CK-MB (CK-2) 149.6 H (0.5-3.6) ng/mL Total Protein 6.2 L D (6.4-8.2) g/dL Albumin 2.9 L D (3.4-5.0) g/dL Urine Occult Blood (Negative) Urine Bacteria (None) /hpf Ur Amphetamines Screen (Neg) Short CBC 01/25/18 01/25/18 Range/Units 04:23 04:23 WBC Cancelled 9.3 Hgb Cancelled 14.4 Hct Cancelled 42.7 Plt Count Cancelled 215 BMP 01/25/18 04:23 Sodium 142 Potassium 4.0 Chloride 110 H Carbon Dioxide 19.1 L BUN 14 Creatinine 0.95 Calcium 7.9 L D Cardiac Enzymes 01/25/18 Range/Units 04:23 Total Creatine Kinase 4083 H (39-308) U/L CK-MB (CK-2) 149.6 H (0.5-3.6) ng/mL Liver Function 01/25/18 Range/Units 04:23 Total Bilirubin 0.9 (0.2-1.0) mg/dL AST 255 H (15-37) U/L ALT 89 H (12-78) U/L Alkaline Phosphatase 55 (45-117) U/L Albumin 2.9 L D (3.4-5.0) g/dL Urine 01/24/18 Range/Units 18:50 Urine Color Yellow (Yellw/Straw) Urine Clarity Clear (Clear) Urine pH 5.0 (5.0-8.5) Ur Specific [place] 1.014 (1.002-1.035) Urine Protein Negative (Neg-Trace) mg/dL Urine Glucose (UA) Negative (Negative) mg/dL <Neda Lim - 01/25/18 12:38> Abnormal lab results 01/23/18 01/23/18 01/23/18 Range/Units 20:49 20:52 20:52 WBC 13.4 H (4.0-11.0) th/mm3 Neut % (Auto) 78.3 H (16.0-70.0) % Lymph % (Auto) 6.9 L (9.0-44.0) % [place] % (Auto) 14.3 H (0.0-8.0) % Neut # (Auto) 10.5 H (1.8-7.7) th/mm3 Lymph # (Auto) 0.9 L (1.0-4.8) th/mm3 [place] # (Auto) 1.9 H (0.0-0.9) th/mm3 Anion Gap 16 H (5-15) meq/L BUN 22 H (7-18) mg/dL Creatinine 1.82 H (0.60-1.30) mg/dL Estimated GFR 42 L (>89) mL/min POC Glucose 126 H (68-110) mg/dl AST 69 H (15-37) U/L Total Creatine Kinase (39-308) U/L CK-MB (CK-2) (0.5-3.6) ng/mL 01/23/18 01/23/18 01/24/18 Range/Units 20:52 23:57 10:29 WBC (4.0-11.0) th/mm3 Neut % (Auto) (16.0-70.0) % Lymph % (Auto) (9.0-44.0) % [place] % (Auto) (0.0-8.0) % Neut # (Auto) (1.8-7.7) th/mm3 Lymph # (Auto) (1.0-4.8) th/mm3 [place] # (Auto) (0.0-0.9) th/mm3 Anion Gap (5-15) meq/L BUN (7-18) mg/dL Creatinine (0.60-1.30) mg/dL Estimated GFR (>89) mL/min POC Glucose (68-110) mg/dl AST (15-37) U/L Total Creatine Kinase 1137 H 1643 H 6730 H (39-308) U/L CK-MB (CK-2) 19.2 H 22.6 H 207.5 H (0.5-3.6) ng/mL Short CBC 01/23/18 Range/Units 20:52 WBC 13.4 H (4.0-11.0) th/mm3 Hgb 14.4 (13.0-17.0) gm/dL Hct 41.5 (39.0-51.0) % Plt Count 215 (150-450) th/mm3 BMP 01/23/18 20:52 Sodium 141 Potassium 3.8 Chloride 103 Carbon Dioxide 21.9 BUN 22 H Creatinine 1.82 H Calcium 8.8 Cardiac Enzymes 01/23/18 01/23/18 01/24/18 Range/Units 20:52 23:57 10:29 Total Creatine Kinase 1137 H 1643 H 6730 H (39-308) U/L CK-MB (CK-2) 19.2 H 22.6 H 207.5 H (0.5-3.6) ng/mL Liver Function 01/23/18 Range/Units 20:52 Total Bilirubin 1.0 (0.2-1.0) mg/dL AST 69 H (15-37) U/L ALT 56 (12-78) U/L Alkaline Phosphatase 65 (45-117) U/L Albumin 4.1 (3.4-5.0) g/dL <Vesna Ramirez - 01/24/18 13:44> Caprini VTE Risk Assessment Caprini VTE Risk Assessment: No/Low Risk (score <= 1) <Vesna Ramirez 01/24 17:21> Caprini Risk Assessment Model: Point Value = 1 Point Value = 2 Point Value = 3 Point Value = 5 Age 41-60 Minor surgery BMI > 25 kg/m2 Swollen legs Varicose veins or History of unexplained or recurrent spontaneous Oral contraceptives or hormone replacement Sepsis (< 1 month) Serious lung disease, including pneumonia (< 1 month) Abnormal pulmonary function Acute myocardial infarction Congestive heart failure (< 1 month) History of inflammatory bowel disease Medical patient at bed rest Age 61-74 Arthroscopic surgery Major open surgery (> 45 min) Laparoscopic surgery (> 45 min) Malignancy Confined to bed (> 72 hours) Immobilizing plaster cast Central venous access Age >= 75 History of VTE Family history of VTE Factor V Leiden Prothrombin [id number] Lupus anticoagulant Anticardiolipin antibodies Elevated serum homocysteine Heparin-induced thrombocytopenia Other congenital or acquired thrombophilia Stroke (< 1 month) Elective arthroplasty Hip, pelvis, or leg fracture Acute spinal cord injury (< 1 month) <Neda Lim M - 01/25/18 12:38> Point Value = 1 Point Value = 2 Point Value = 3 Point Value = 5 Age 41-60 Minor surgery BMI > 25 kg/m2 Swollen legs Varicose veins or History of unexplained or recurrent spontaneous Oral contraceptives or hormone replacement Sepsis (< 1 month) Serious lung disease, including pneumonia (< 1 month) Abnormal pulmonary function Acute myocardial infarction Congestive heart failure (< 1 month) History of inflammatory bowel disease Medical patient at bed rest Age 61-74 Arthroscopic surgery Major open surgery (> 45 min) Laparoscopic surgery (> 45 min) Malignancy Confined to bed (> 72 hours) Immobilizing plaster cast Central venous access Age >= 75 History of VTE Family history of VTE Factor V Leiden Prothrombin [id number] Lupus anticoagulant Anticardiolipin antibodies Elevated serum homocysteine Heparin-induced thrombocytopenia Other congenital or acquired thrombophilia Stroke (< 1 month) Elective arthroplasty Hip, pelvis, or leg fracture Acute spinal cord injury (< 1 month) <Vesna Ramirez - 01/24/18 13:44> Prophylaxis Regimen: Total Risk Factor Score Risk Level Prophylaxis Regimen 0-1 Low Early ambulation 2 Moderate Order ONE of the following: *Sequential Compression Device (SCD) *Heparin 5000 units SQ BID 3-4 Higher Order ONE of the following medications: *Heparin 5000 units SQ TID *Enoxaparin/Lovenox 40 mg SQ daily (WT < 150 kg, CrCl > 30 mL/min) *Enoxaparin/Lovenox 30 mg SQ daily (WT < 150 kg, CrCl > 10-29 mL/min) *Enoxaparin/Lovenox 30 mg SQ BID (WT < 150 kg, CrCl > 30 mL/min) AND/OR *Sequential Compression Device (SCD) 5 or more Highest Order ONE of the following medications: *Heparin 5000 units SQ TID (Preferred with Epidurals) *Enoxaparin/Lovenox 40 mg SQ daily (WT < 150 kg, CrCl > 30 mL/min) *Enoxaparin/Lovenox 30 mg SQ daily (WT < 150 kg, CrCl > 10-29 mL/min) *Enoxaparin/Lovenox 30 mg SQ BID (WT < 150 kg, CrCl > 30 mL/min) AND *Sequential Compression Device (SCD) <RaphaelMigelNeda M - 01/25/18 12:38> Total Risk Factor Score Risk Level Prophylaxis Regimen 0-1 Low Early ambulation 2 Moderate Order ONE of the following: *Sequential Compression Device (SCD) *Heparin 5000 units SQ BID 3-4 Higher Order ONE of the following medications: *Heparin 5000 units SQ TID *Enoxaparin/Lovenox 40 mg SQ daily (WT < 150 kg, CrCl > 30 mL/min) *Enoxaparin/Lovenox 30 mg SQ daily (WT < 150 kg, CrCl > 10-29 mL/min) *Enoxaparin/Lovenox 30 mg SQ BID (WT < 150 kg, CrCl > 30 mL/min) AND/OR *Sequential Compression Device (SCD) 5 or more Highest Order ONE of the following medications: *Heparin 5000 units SQ TID (Preferred with Epidurals) *Enoxaparin/Lovenox 40 mg SQ daily (WT < 150 kg, CrCl > 30 mL/min) *Enoxaparin/Lovenox 30 mg SQ daily (WT < 150 kg, CrCl > 10-29 mL/min) *Enoxaparin/Lovenox 30 mg SQ BID (WT < 150 kg, CrCl > 30 mL/min) AND *Sequential Compression Device (SCD) <Vesna Ramirez - 01/24/18 13:44> Assessment and Plan - Assessment (1) Rhabdomyolysis Code(s): M62.82 - Rhabdomyolysis Status: Acute (2) Substance abuse Code(s): F19.10 - Other psychoactive substance abuse, uncomplicated Status: Acute (3) Nutrition, metabolism, and development symptoms Code(s): R63.8 - Other symptoms and signs concerning food and fluid intake Status: Acute <RaphaelNeda M - 01/25/18 12:38> (1) Rhabdomyolysis Code(s): M62.82 - Rhabdomyolysis Status: Acute Plan: Patient with h/o of rhabdomyolysis and kidney injury. CK uptrending from 1600s to 6500s s/p 6L NS bolus Lactic acid 0.5 Mild leukocytosis at 13.4 c/w IVF @ 150ml/hr Follow up: cbc and cmp trend CK (2) Substance abuse Code(s): F19.10 - Other psychoactive substance abuse, uncomplicated Status: Acute Plan: Patient with h/o of polysubstance abuse. Patient required restraints and multiple sedatives while in the ED for agitation. re-assess patient once sedation has worn off Placed on CIWA protocol monitor VS titrate oxygen as needed to keep O2 sat >92% Follow up: UDS alcohol level (3) Nutrition, metabolism, and development symptoms Code(s): R63.8 - Other symptoms and signs concerning food and fluid intake Status: Acute Plan: Fluids: s/p 6L NS in the ED. LR at 150mls/hr Electrolytes: replete at needed Nutrition: NPO DVT ppx: SCDs <Vesna Ramirez - 01/24/18 16:40> - Attending Attestation The exam, history, and the medical decision-making described in the above note were completed with the assistance of the resident physician. I reviewed and agree with the findings presented. I attest that I had a [id number] encounter with the patient on the same day, and personally performed and documented my assessment and findings in the medical record. He was extremely sedated when I saw him on the day of admission. He was not able to even give a coherent sentence. However he was moving all 4 extremities and did not appear to have had any other neurologic event besides his drugs. On reviewing his old records from December he had been here just a month ago and had a similar presentation. <Neda Lim - 01/25/18 12:38>
[2018-01-24] MEDS ORDERED: Bisacodyl 10 MG Supp RECTAL PRN (13:45)
[2018-01-24] MEDS ORDERED: Senna/Docusate Sodium 8.6/50 MG Tablet PO PRN (13:45)
[2018-01-24] MEDS ORDERED: Acetaminophen 325 MG Tablet PO PRN (13:52)
[2018-01-24] MEDS ORDERED: LORazepam 1 MG Tablet PO PRN (13:58)
[2018-01-24] MEDS ORDERED: Haloperidol Inj 5 MG/ML Ampul IV.PUSH PRN (13:58)
--- NOTE | 2018-01-24 17:35 | ECG ---
Date Performed: 01/23/2018 Time Performed: 20:30:35 PTAGE: 37 years EKG: SINUS TACHYCARDIA BORDERLINE RIGHT AXIS DEVIATION ABNORMAL RHYTHM ECG Since PREVIOUS TRACING , no significant change noted PREVIOUS TRACIN12/19/2017 08.39 DOCTOR: Sathish Dorsey Interpretating Date/Time 01/24/2018 17:33:37
[2018-01-24 19:36] LABS: Amphetamine Screen,Urine Pos (Neg); Barbiturate Screen,Urine Neg (Neg); Cannabinoid Screen,Urine Neg (Neg); Cocaine Screen,Urine Neg (Neg)
[2018-01-24 19:39] LABS: Bacteria,Urine Rare /hpf; Bilirubin,Urine Negative (Negative); Clarity,Urine Clear (Clear); Color,Urine Yellow (Yellw/Straw); Glucose,Urine (UA) Negative (Negative); Leukocyte Esterase,Urine Negative (Negative); Nitrite,Urine Negative (Negative); Opiate Screen,Urine Neg (Neg); Specific Gravity,Urine 1.014 (1.002-1.035)
[2018-01-25 04:41] LABS: Baso % (Auto) 0.4 % (0.0-2.0); Eos # (Auto) 0.1 th/mm3 (0.0-0.4); Eos % (Auto) 0.9 % (0.0-4.0); Hematocrit 42.7 % (39.0-51.0); Hemoglobin 14.4 gm/dL (13.0-17.0); Lymph # (Auto) 1.5 th/mm3 (1.0-4.8); Lymph % (Auto) 15.7 % (9.0-44.0); Mean Corpuscular HGB Conc 33.8 % (32.0-36.0); Mean Corpuscular Hemoglobin 30.4 pg (27.0-34.0); Mean Platelet Volume 7.8 fL (7.0-11.0); Mono # (Auto) 1.2 th/mm3 (0.0-0.9); Mono % (Auto) 12.5 % (0.0-8.0); Neut # (Auto) 6.5 th/mm3 (1.8-7.7); Neut % (Auto) 70.5 % (16.0-70.0); Platelet Count 215 th/mm3 (150-450); Red Blood Count 4.74 mil/mm3 (4.50-5.90); Red Cell Distribution Width 13.7 % (11.6-17.2); White Blood Count 9.3 th/mm3 (4.0-11.0)
[2018-01-25 05:07] LABS: Alanine Aminotransferase 89 U/L (12-78); Albumin 2.9 g/dL (3.4-5.0); Anion Gap 13 meq/L (5-15); Aspartate Aminotransferase 255 U/L (15-37); Blood Urea Nitrogen 14 mg/dL (7-18); Calcium 7.9 mg/dL (8.5-10.1); Carbon Dioxide 19.1 meq/L (21.0-32.0); Chloride 110 meq/L (98-107); Glomerular Filtration Rate 89 mL/min (>89); Glucose,Random 59 mg/dL (74-106); Sodium 142 meq/L (136-145)
[2018-01-25 05:21] LABS: Alkaline Phosphatase 55 U/L (45-117); Creatine Kinase 4083 U/L (39-308); Total Protein 6.2 g/dL (6.4-8.2)
[2018-01-25 05:39] LABS: CKMB Percent 3.7 % (0.0-4.0); Creatine Kinase MB 149.6 ng/mL (0.5-3.6)
--- NOTE | 2018-01-25 11:00 | P.HPFP ---
History of Present Illness Primary Care Physician: UNKNOWN History of Present Illness: Mr Brown is a 37 yo M with Pmhx of multiple drug addiction, mixed disturbances of emotion and conduct and personality disorder. Patient minimally responsive on admission. Not cooperative, not able to contribute to history. Majority of hpi obtained from chart review. Patient was brought in via [facility] from a hotel for disruptive behavior. He received ketamine on the field by EMS. Patient is believed to be to have been under the influence of stimulants. However patient denied any consumption of illicit drugs on admission. In the ED patient had required restraints and multiple sedatives for combative behavior. Of note: Patient was recently hospitalized under psychiatry for substance abuse. UDS was positive for cocaine and amphetamines. At that time he had been Enc[place] acted which was later lifted.. He has previously been involved in detox program at [facility] and then progressed to a sober house. Per additional history obtained by his nurse overnight, his grandparent and he "fell off the wagon". Multiple people from the sober house came to visit him in the hospital and are happy to take him back there as soon as he is released. It was explained to Mr. Brown that continuing on this past of drug abuse could result in his permanent injury or . This morning he admitted to drug use and is wanting to go back to abstinence. He is feeling improved to the point where he is hungry today. - Diagnosis (1) Rhabdomyolysis (2) Substance abuse (3) Nutrition, metabolism, and development symptoms (4) Hand edema Inpatient Certification: I certify that the inpatient services were ordered in accordance with Medicare regulations governing the order. This includes certification that hospital inpatient services are reasonable and necessary and in the case of services not specified as inpatient-only under 42 CFR 419.22(n), that they are appropriately provided as inpatient services in accordance to with the 2-midnight benchmark under 43 CFR 412.3(e) Review of Systems unobtainable due to mental condition Initially his review of systems was unobtainable due to his mental state. Today though he is able to open his eyes he is not answering more than 1 in 10 questions his review of systems is still difficult to obtain. PMFSH - History History Provided By: Friend - Tobacco History Second Hand Smoke Exposure: (unable to obtain patient sleeping) Tobacco Use In Past 30 Days: (unable to obtain patient sleeping) Smoking Status: Unknown if ever smoked - Alcohol History How Often Do You Have a Drink Containing Alcohol: Monthly or less - Substance Use History Substance History: Active Abuse - Substance Use Type Methamphetamine Status: Active Route Used: Inhalation Frequency: daily Reason for Use: Get High Heroin Status: Active Route Used: Intravenously Frequency: daily Reason for Use: Get High Comment: lives in face house [place] - Immunization History Tetanus Immunization: Unsure Medications and Allergies Active Medications: Active Medications Acetaminophen (Tylenol) 650 mg PO Q6H PRN PRN Reason: PAIN 1-10 AND/OR FEVER >101F Al Hydroxide/Mg Hydroxide (Milk Of Magnesia Liq) 30 ml PO Q12H PRN PRN Reason: Mild Constipation Bisacodyl (Dulcolax Supp) 10 mg RECTAL DAILY PRN PRN Reason: SEVERE CONSITIPATION Flumazenil (Romazecon Inj) 0.2 mg IV.PUSH Q1M PRN PRN Reason: OVERSEDATION Haloperidol Lactate (Haldol Inj) 1 mg IV.PUSH Q15M PRN PRN Reason: for severe agitation Lactated Ringer's (Lr 1000 Ml Inj) 1,000 mls @ 150 mls/hr IV.CONT .Q6H40M BLAKE Last Infusion: 01/25/18 01:52 Dose: 50 mls/hr Lactulose (Lactulose Liq) 30 ml PO DAILY PRN PRN Reason: SEVERE CONSITIPATION Lorazepam (Ativan) 1 mg PO Q4H PRN PRN Reason: for CIWA 8-10 Lorazepam (Ativan) 2 mg PO Q2H PRN PRN Reason: for CIWA 11-14 Lorazepam (Ativan Inj) 2 mg IV.PUSH Q2H PRN PRN Reason: for CIWA 11-14 Lorazepam (Ativan Inj) 2 mg IV.PUSH Q1H PRN PRN Reason: for CIWA 15-20 Lorazepam (Ativan Inj) 2 mg IV.PUSH Q15M PRN PRN Reason: for CIWA > 20 Lorazepam (Ativan Inj) 1 mg IV.PUSH Q4H PRN PRN Reason: for CIWA 8-10 Ondansetron HCl (Zofran Odt) 4 mg PO Q6H PRN PRN Reason: NAUSEA OR VOMITING Senna/Docusate Sodium (Adelina-Colace) 1 tab PO BID PRN PRN Reason: SEVERE CONSTIPATION Sennosides (Senokot) 17.2 mg PO Q12H PRN PRN Reason: Moderate Constipation Allergies Allergy/AdvReac Type Severity Reaction Status Date / Time No Known Allergies Allergy Verified 01/23/18 20:19 Home Medications Medication Instructions Recorded Confirmed Type Unable to Obtain Home Meds 01/23/18 01/23/18 History Exam Vital signs: Vital Signs 01/24/18 11:31 01/24/18 14:11 01/24/18 16:55 Temperature 97.6 F Pulse Rate 81 79 76 Respiratory Rate 18 18 16 Blood Pressure 132/78 142/78 H 137/84 Pulse Oximetry 98 98 98 01/24/18 20:00 01/25/18 00:00 01/25/18 01:30 Temperature 98.5 F 98.7 F Pulse Rate 88 82 90 Respiratory Rate 18 17 Blood Pressure 125/72 115/70 Pulse Oximetry 99 98 01/25/18 01:40 01/25/18 02:25 01/25/18 04:00 Temperature 98.5 F Pulse Rate 90 79 85 Respiratory Rate 17 Blood Pressure 126/65 Pulse Oximetry 97 01/25/18 08:00 Temperature 98.2 F Pulse Rate 88 Respiratory Rate 20 Blood Pressure 118/60 Pulse Oximetry 97 Intake & Output 01/24/18 01/25/18 01/25/18 18:59 06:59 18:59 Intake Total 100 / 100 1120 / 1120 240 / 240 Output Total 750 / 750 550 / 550 Balance -650 / -650 570 / 570 240 / 240 Intake: IV 100 / 100 1000 / 1000 LR 1000 mL Inj 1,000 ML @ 150 100 / 100 1000 / 1000 mls/hr IV.CONT .Q6H40M [facility] Rx#: [id number] Oral 120 / 120 240 / 240 Output: Urine 750 / 750 550 / 550 - Constitutional no acute distress, average body habitus, somnolent - Routine HEENT Exam Head: Present: normocephalic, atraumatic. Absent: hematoma, facial swelling Eye: Absent: periorbital ecchymosis, periorbital swelling, nystagmus ENT: Present: mucous membranes moist - Routine Neck Exam Present: full ROM, trachea midline. Absent: trauma - Routine Chest/Breast/Axilla Exam Chest wall: Absent: tenderness, pacemaker, chest tube - Routine Respiratory Exam Present: CTA bilaterally. Absent: accessory muscle use, patient mechanically ventilated, decreased breath sounds, prolonged expiratory phase, respiratory distress - Routine Cardiovascular Exam Present: RRR. Absent: murmur, gallop, rubs - Routine Abdominal Exam Present: soft, normoactive bowel sounds. Absent: tenderness, distended, rebound , guarding, firm - Routine Extremities Exam Present: edema (Of his hands especially the right one). Absent: cyanosis, clubbing - Routine Skin Exam Present: intact, dry. Absent: cyanosis, erythema, petechiae - Routine Neurological Exam Present: altered mental status, moving all extremities, normal tone. Absent: sensory deficit, motor deficit, nystagmus Results - Labs Result diagrams: 01/25/18 04:23 01/25/18 04:23 Abnormal lab results 01/24/18 01/24/18 01/24/18 Range/Units 10:29 18:50 18:50 Neut % (Auto) (16.0-70.0) % Sutton % (Auto) (0.0-8.0) % [place] # (Auto) (0.0-0.9) th/mm3 Chloride (98-107) meq/L Carbon Dioxide (21.0-32.0) meq/L Random Glucose (74-106) mg/dL Calcium (8.5-10.1) mg/dL AST (15-37) U/L ALT (12-78) U/L Total Creatine Kinase 6730 H (39-308) U/L CK-MB (CK-2) 207.5 H (0.5-3.6) ng/mL Total Protein (6.4-8.2) g/dL Albumin (3.4-5.0) g/dL Urine Occult Blood Moderate H (Negative) Urine Bacteria Rare H (None) /hpf Ur Amphetamines Screen Pos H (Neg) 01/25/18 01/25/18 Range/Units 04:23 04:23 Neut % (Auto) 70.5 H (16.0-70.0) % Sutton % (Auto) 12.5 H (0.0-8.0) % Sutton # (Auto) 1.2 H (0.0-0.9) th/mm3 Chloride 110 H (98-107) meq/L Carbon Dioxide 19.1 L (21.0-32.0) meq/L Random Glucose 59 L (74-106) mg/dL Calcium 7.9 L D (8.5-10.1) mg/dL AST 255 H (15-37) U/L ALT 89 H (12-78) U/L Total Creatine Kinase 4083 H (39-308) U/L CK-MB (CK-2) 149.6 H (0.5-3.6) ng/mL Total Protein 6.2 L D (6.4-8.2) g/dL Albumin 2.9 L D (3.4-5.0) g/dL Urine Occult Blood (Negative) Urine Bacteria (None) /hpf Ur Amphetamines Screen (Neg) Short CBC 01/25/18 01/25/18 Range/Units 04:23 04:23 WBC Cancelled 9.3 Hgb Cancelled 14.4 Hct Cancelled 42.7 Plt Count Cancelled 215 BMP 01/25/18 04:23 Sodium 142 Potassium 4.0 Chloride 110 H Carbon Dioxide 19.1 L BUN 14 Creatinine 0.95 Calcium 7.9 L D Cardiac Enzymes 01/24/18 01/25/18 Range/Units 10:29 04:23 Total Creatine Kinase 6730 H 4083 H (39-308) U/L CK-MB (CK-2) 207.5 H 149.6 H (0.5-3.6) ng/mL Liver Function 01/25/18 Range/Units 04:23 Total Bilirubin 0.9 (0.2-1.0) mg/dL AST 255 H (15-37) U/L ALT 89 H (12-78) U/L Alkaline Phosphatase 55 (45-117) U/L Albumin 2.9 L D (3.4-5.0) g/dL Urine 01/24/18 Range/Units 18:50 Urine Color Yellow (Yellw/Straw) Urine Clarity Clear (Clear) Urine pH 5.0 (5.0-8.5) Ur Specific [place] 1.014 (1.002-1.035) Urine Protein Negative (Neg-Trace) mg/dL Urine Glucose (UA) Negative (Negative) mg/dL Caprini VTE Risk Assessment Caprini VTE Risk Assessment: No/Low Risk (score <= 1) Caprini Risk Assessment Model: Point Value = 1 Point Value = 2 Point Value = 3 Point Value = 5 Age 41-60 Minor surgery BMI > 25 kg/m2 Swollen legs Varicose veins or History of unexplained or recurrent spontaneous Oral contraceptives or hormone replacement Sepsis (< 1 month) Serious lung disease, including pneumonia (< 1 month) Abnormal pulmonary function Acute myocardial infarction Congestive heart failure (< 1 month) History of inflammatory bowel disease Medical patient at bed rest Age 61-74 Arthroscopic surgery Major open surgery (> 45 min) Laparoscopic surgery (> 45 min) Malignancy Confined to bed (> 72 hours) Immobilizing plaster cast Central venous access Age >= 75 History of VTE Family history of VTE Factor V Leiden Prothrombin [id number] Lupus anticoagulant Anticardiolipin antibodies Elevated serum homocysteine Heparin-induced thrombocytopenia Other congenital or acquired thrombophilia Stroke (< 1 month) Elective arthroplasty Hip, pelvis, or leg fracture Acute spinal cord injury (< 1 month) Prophylaxis Regimen: Total Risk Factor Score Risk Level Prophylaxis Regimen 0-1 Low Early ambulation 2 Moderate Order ONE of the following: *Sequential Compression Device (SCD) *Heparin 5000 units SQ BID 3-4 Higher Order ONE of the following medications: *Heparin 5000 units SQ TID *Enoxaparin/Lovenox 40 mg SQ daily (WT < 150 kg, CrCl > 30 mL/min) *Enoxaparin/Lovenox 30 mg SQ daily (WT < 150 kg, CrCl > 10-29 mL/min) *Enoxaparin/Lovenox 30 mg SQ BID (WT < 150 kg, CrCl > 30 mL/min) AND/OR *Sequential Compression Device (SCD) 5 or more Highest Order ONE of the following medications: *Heparin 5000 units SQ TID (Preferred with Epidurals) *Enoxaparin/Lovenox 40 mg SQ daily (WT < 150 kg, CrCl > 30 mL/min) *Enoxaparin/Lovenox 30 mg SQ daily (WT < 150 kg, CrCl > 10-29 mL/min) *Enoxaparin/Lovenox 30 mg SQ BID (WT < 150 kg, CrCl > 30 mL/min) AND *Sequential Compression Device (SCD) Assessment and Plan - Assessment (1) Rhabdomyolysis Code(s): M62.82 - Rhabdomyolysis Status: Acute Plan: Patient with h/o of rhabdomyolysis and kidney injury. CK uptrending from 1600s to 6500s s/p 6L NS bolus Lactic acid 0.5 Mild leukocytosis at 13.4 c/w IVF @ 150ml/hr Follow up: cbc and cmp trend CK Because of his drug use hope he will not leave AMA. Fortunately he has no renal failure. Will continue to give IV fluids and allow patient to take p.o. ad ginny. (2) Substance abuse Code(s): F19.10 - Other psychoactive substance abuse, uncomplicated Status: Acute Plan: Patient with h/o of polysubstance abuse. Patient required restraints and multiple sedatives while in the ED for agitation. re-assessed patient this morning. He still remains somnolent. He may have been using methamphetamines all weekend according to the history obtained. Often patients who use medications similar to that will "crash". He is very somnolent but hungry and seems to be fitting that pattern right now Placed on CIWA protocol monitor VS titrate oxygen as needed to keep O2 sat >92% Fortunately he is staying at a sober house and multiple people including his sponsor came to visit last night. This will be a good plan to go back there for discharge. Follow up: UDS done alcohol level (3) Nutrition, metabolism, and development symptoms Code(s): R63.8 - Other symptoms and signs concerning food and fluid intake Status: Acute Plan: Fluids: s/p 6L NS in the ED. LR at 150mls/hr Electrolytes: replete at needed Nutrition: Regular diet. DVT ppx: SCDs (4) Hand edema Code(s): R60.0 - Localized edema Status: Acute Plan: He has edema in his hands bilaterally but worse on the right. He does not at this time have erythema or any pus or the appearance of an abscess. He is a poor historian and is unable to explain exactly what happened with his hands. We will check an ultrasound to be sure he does not have any clots since he has injected heroin in the past. He also according to the reports was "climbing the corrales" at the hotel room. He may have injured his hand with all of the activity he did prior to coming to the hospital. Will consider an x-ray of his hand particularly if he does not continue to improve. Her exam he appears stable from today to yesterday. H&P: Quality - VTE Deep Vein Thrombosis/Pulmonary Embolism Present on Admission: No
[2018-01-25] MEDS ORDERED: Propofol Inj 500 MG/50 ML Vial ONE (11:06)
--- NOTE | 2018-01-25 14:41 | US ---
EXAM DATE: 01/25/2018 2:20 PM EDT AGE/SEX: 37 years / Male INDICATIONS: Bilateral arm swelling. CLINICAL DATA: This is the patient's initial encounter. Patient reports that signs and symptoms have been present for 2 days and indicates a pain score of 5/10. MEDICAL/SURGICAL HISTORY: . Multiple drug addictions. Conduct and personality disorder. Rhabdom yolysis. . COMPARISON: No prior exams available for comparison. FINDINGS: Right Upper Extremity: The vessels are compressible and augmentation response is documented. No fill ing defects are seen. The flow is phasic with respiration. Left Upper Extremity: The vessels are compressible and augmentation response is documented. No filli ng defects are seen. The flow is phasic with respiration. Other: None. CONCLUSION: 1. The study is negative for bilateral upper extremity deep venous thrombosis. Electronically signed by: Hamzah Arzate MD 01/25/2018 2:40 PM EDT
--- NOTE | 2018-01-25 18:01 | XR ---
EXAM DATE: 01/25/2018 5:55 PM EDT AGE/SEX: 37 years / Male INDICATIONS: Right hand pain and swelling. CLINICAL DATA: This is the patient's initial encounter. Patient reports that signs and symptoms have been present for 1 day and indicates a pain score of Nonresponsive. MEDICAL/SURGICAL HISTORY: Non-responsive. Non-responsive. COMPARISON: No prior exams available for comparison. FINDINGS: No definite fractures, or dislocations are identified. No definite lytic or sclerotic les ion is seen. CONCLUSION: Unremarkable study. Electronically signed by: Hamzah Arzate MD 01/25/2018 6:00 PM EDT
--- NOTE | 2018-01-25 18:02 | XR ---
EXAM DATE: 01/25/2018 5:57 PM EDT AGE/SEX: 37 years / Male INDICATIONS: Left hand pain and swelling. CLINICAL DATA: This is the patient's initial encounter. Patient reports that signs and symptoms have been present for 1 day and indicates a pain score of Nonresponsive. MEDICAL/SURGICAL HISTORY: Non-responsive. Non-responsive. COMPARISON: No prior exams available for comparison. FINDINGS: No definite fractures, or dislocations are identified. No definite lytic or sclerotic les ion is seen. The joint spaces are well maintained. CONCLUSION: Unremarkable study. Electronically signed by: Hamzah Arzate MD 01/25/2018 6:01 PM EDT
[2018-01-25 18:06] LABS: Carbon Dioxide 25.6 meq/L (21.0-32.0); Potassium 3.7 meq/L (3.5-5.1)
[2018-01-25 18:46] LABS: Creatine Kinase MB 61.7 ng/mL (0.5-3.6)
[2018-01-26 05:15] LABS: Alanine Aminotransferase 85 U/L (12-78); Albumin 2.7 g/dL (3.4-5.0); Alkaline Phosphatase 50 U/L (45-117); Anion Gap 10 meq/L (5-15); Aspartate Aminotransferase 186 U/L (15-37); Blood Urea Nitrogen 11 mg/dL (7-18); Calcium 8.5 mg/dL (8.5-10.1); Chloride 107 meq/L (98-107); Glomerular Filtration Rate Greater Than 89 mL/min (>89); Glucose,Random 87 mg/dL (74-106); Potassium 3.6 meq/L (3.5-5.1); Sodium 142 meq/L (136-145); Total Protein 6.2 g/dL (6.4-8.2)
[2018-01-26 07:41] VITALS: RESP 16
--- NOTE | 2018-01-26 11:33 | P.PNFP ---
Subjective Interval history: Mr Brown has been sleeping and eating since he presented to the hospital. He seems to be recovering from using amphetamines over the weekend. His rhabdomyolysis continues to improve. At this point he is taking good p.o. fluids. He has had no renal failure. He denied any other problems. He did seem ready to quit illicit drugs. The plan was to call his sponsor in the safe house where he has been staying so that he can go back there at the time of discharge. He denied further muscle aches. We discussed that continuing to use illicit drugs is life threatening. We also discussed once he was more stable having an HIV test and hepatitis C test. Results - Labs Result diagrams: 01/25/18 04:23 01/26/18 04:05 Abnormal lab results 01/25/18 01/26/18 Range/Units 17:00 04:05 Chloride 108 H (98-107) meq/L Estimated GFR 79 L (>89) mL/min Calcium 8.0 L (8.5-10.1) mg/dL AST 186 H (15-37) U/L ALT 85 H (12-78) U/L Total Creatine Kinase 3080 H (39-308) U/L CK-MB (CK-2) 61.7 H (0.5-3.6) ng/mL Total Protein 6.2 L (6.4-8.2) g/dL Albumin 2.7 L (3.4-5.0) g/dL BMP 01/25/18 01/26/18 17:00 04:05 Sodium 142 142 Potassium 3.7 3.6 Chloride 108 H 107 Carbon Dioxide 25.6 25.0 BUN 14 11 Creatinine 1.05 0.84 Calcium 8.0 L 8.5 Cardiac Enzymes 01/25/18 Range/Units 17:00 Total Creatine Kinase 3080 H (39-308) U/L CK-MB (CK-2) 61.7 H (0.5-3.6) ng/mL Liver Function 01/26/18 Range/Units 04:05 Total Bilirubin 0.6 (0.2-1.0) mg/dL AST 186 H (15-37) U/L ALT 85 H (12-78) U/L Alkaline Phosphatase 50 (45-117) U/L Albumin 2.7 L (3.4-5.0) g/dL - Imaging Impressions Hand X-Ray 01/25/18 00:00 CONCLUSION: Unremarkable study. Hand X-Ray 01/25/18 00:00 CONCLUSION: Unremarkable study. Venous Doppler Study 01/25/18 00:00 CONCLUSION: 1. The study is negative for bilateral upper extremity deep venous thrombosis. Physical Exam Vital signs: Vital Signs 01/25/18 12:00 01/25/18 16:00 01/25/18 20:00 Temperature 98.4 F 98.0 F 98.5 F Pulse Rate 87 85 97 H Respiratory Rate 20 18 17 Blood Pressure 108/57 L 107/55 L 104/59 L Pulse Oximetry 97 96 96 01/25/18 20:30 01/25/18 23:52 01/26/18 00:05 Temperature 98.0 F Pulse Rate 91 H 70 72 Respiratory Rate 18 Blood Pressure 113/61 Pulse Oximetry 98 01/26/18 04:00 01/26/18 05:05 01/26/18 07:40 Temperature 98.7 F 97.6 F Pulse Rate 74 70 95 H Respiratory Rate 17 16 Blood Pressure 102/64 117/72 Pulse Oximetry 97 98 Intake & Output 01/25/18 01/26/18 01/26/18 18:59 06:59 18:59 Intake Total 480 / 480 400 / 400 Output Total 475 / 475 Balance 5 / 5 400 / 400 Intake: Oral 480 / 480 400 / 400 Output: Urine 475 / 475 Other: # Voids 3 1 Weight On Admission 72.5 kg - Constitutional no acute distress, cooperative, somnolent - Routine HEENT Exam Head: Present: normocephalic, atraumatic. Absent: cushingoid faces, hematoma, facial swelling Eye: Present: EOMI. Absent: conjunctival icterus, conjunctivae pink, periorbital ecchymosis, periorbital tenderness, nystagmus ENT: Present: mucous membranes moist, external ear normal - Routine Neck Exam Present: trachea midline. Absent: trauma, meningismus - Routine Respiratory Exam Present: CTA bilaterally. Absent: accessory muscle use, patient mechanically ventilated, decreased breath sounds, prolonged expiratory phase, rales, respiratory distress, rhonchi - Routine Cardiovascular Exam Present: RRR. Absent: murmur, gallop, rubs, bradycardia, tachycardia, irregular rhythm, irregularly irregular - Routine Abdominal Exam Present: soft. Absent: tenderness, distended, rebound, guarding, organomegaly - Routine Extremities Exam Present: edema (Hands bilaterally), normal capillary refill. Absent: cyanosis, clubbing, joint swelling, pallor, extremity cold to touch, amputation - Routine Skin Exam Present: intact, dry. Absent: pallor, mottling, petechiae - Routine Neurological Exam Present: alert, oriented X3, normal tone. Absent: sensory deficit, motor deficit, altered mental status - Detailed Neurological Exam: Coma Scale Eye Opening: Spontaneous Verbal Response: Oriented Motor Response: Obey commands Kayla Coma Scale Total: 15 - Routine Psychiatric Exam Present: normal affect, cooperative Assessment and Plan - Assessment (1) Rhabdomyolysis Code(s): M62.82 - Rhabdomyolysis Status: Acute Plan: Patient with h/o of rhabdomyolysis and kidney injury. CK uptrending from 1600s to 6500s initially he was restrained and he was fighting and having problems prior to coming to the ED which likely led to his rhabdo as well as the amphetamines s/p 6L NS bolus in the ED but fortunately no renal failure Lactic acid 0.5 Mild leukocytosis at 13.4 c/w IVF @ 150ml/hr Follow up: cbc and cmp trended CK this continued to decline every time it was checked after the initial rise. He is taking very good p.o. at this time is alert and able to assume self-care. (2) Substance abuse Code(s): F19.10 - Other psychoactive substance abuse, uncomplicated Status: Acute Plan: Patient with h/o of polysubstance abuse. Patient required restraints and multiple sedatives while in the ED for agitation. He may have been using methamphetamines all weekend according to the history obtained. Often patients who use medications similar to that will "crash". He was very somnolent but hungry for the first day but is more alert today Placed on CIWA protocol monitor VS titrate oxygen as needed to keep O2 sat >92% Fortunately he is staying at a sober house and multiple people including his sponsor came to visit. This is the plan to go back there for discharge. UDS done alcohol level Discussed with him that his illicit drug use can lead to serious injury or . (3) Nutrition, metabolism, and development symptoms Code(s): R63.8 - Other symptoms and signs concerning food and fluid intake Status: Acute Plan: Fluids: s/p 6L NS in the ED. LR at 150mls/hr Electrolytes: replete at needed Nutrition: Regular diet. DVT ppx: SCDs (4) Hand edema Code(s): R60.0 - Localized edema Status: Acute Plan: He has edema in his hands bilaterally but worse on the right. He does not at this time have erythema or any pus or the appearance of an abscess. He was a poor historian and is unable to explain exactly what happened with his hands. An ultrasound did not show any clots even though he has injected heroin in the past. He also according to the reports was "climbing the corrales" at the hotel room. He may have injured his hand with all of the activity he did prior to coming to the hospital. Obtained an x-ray of his hand which did not show any fractures. On exam he appears stable from today to yesterday with some improvement in decreased edema.
[2018-01-26 11:56] VITALS: BP 122/74; PULSE 73; TEMP 97.9; O2SAT 96
--- NOTE | 2018-02-08 00:04 | P.DS ---
Date of admission: 01/24/18 12:24 Primary care physician: UNKNOWN Brief History from admission: Mr Brown is a 37 yo M with Pmhx of multiple drug addiction, mixed disturbances of emotion and conduct and personality disorder. Patient minimally responsive on admission. Not cooperative, not able to contribute to history. Majority of hpi obtained from chart review. Patient was brought in via [facility] from a hotel for disruptive behavior. He received ketamine on the field by EMS. Patient is believed to be to have been under the influence of stimulants. However patient denied any consumption of illicit drugs on admission. In the ED patient had required restraints and multiple sedatives for combative behavior. Of note: Patient was recently hospitalized under psychiatry for substance abuse. UDS was positive for cocaine and amphetamines. At that time he had been [employer] acted which was later lifted.. He has previously been involved in detox program at [facility] and then progressed to a sober house. Per additional history obtained by his nurse overnight, his grandparent and he "fell off the wagon". Multiple people from the sober house came to visit him in the hospital and are happy to take him back there as soon as he is released. It was explained to Mr. Brown that continuing on this past of drug abuse could result in his permanent injury or . This morning he admitted to drug use and is wanting to go back to abstinence. He is feeling improved to the point where he is hungry today. DS: Diagnosis - Discharge Diagnosis (1) Rhabdomyolysis Status: Acute (2) Substance abuse Status: Acute DS: Summary Hospital Course: Mr Brown is a 37 yo M with Pmhx of multiple drug addiction, mixed disturbances of emotion and conduct and personality disorder who was brought in via [facility] due to disruptive behavior. Patient was treated aggressively with IV fluids for rhabdomyolysis. Patient's UDS was positive for amphetamines. His creatinine and CK were down trending appropriately. Upon discharge patient was hemodynamically stable and AAOX3. In addition due to swelling and tenderness of patient's hands bilaterally x-ray hands and ultrasound of the upper extremities were done both of which were negative for any fractures or thrombus , respectively. We received contact information about patient's sponsor from his drug rehab program and coordinated to have patient be picked up by sponsor once discharge was done. - Time Spent with Patient Total time spent providing and/or coordinating discharge services: - Quality: VTE Deep Vein Thrombosis/Pulmonary Embolism Present on Admission: No Exam Narrative: - Constitutional no acute distress, cooperative - Routine HEENT Exam Head: Present: normocephalic, atraumatic. Absent: cushingoid faces, hematoma, facial swelling Eye: Present: EOMI. Absent: conjunctival icterus, conjunctivae pink, periorbital ecchymosis, periorbital tenderness, nystagmus ENT: Present: mucous membranes moist, external ear normal - Routine Neck Exam Present: trachea midline. Absent: trauma, meningismus - Routine Respiratory Exam Present: CTA bilaterally. Absent: accessory muscle use, patient mechanically ventilated, decreased breath sounds, prolonged expiratory phase, rales, respiratory distress, rhonchi - Routine Cardiovascular Exam Present: RRR. Absent: murmur, gallop, rubs, bradycardia, tachycardia, irregular rhythm, irregularly irregular - Routine Abdominal Exam Present: soft. Absent: tenderness, distended, rebound, guarding, organomegaly - Routine Extremities Exam Present: edema (Hands bilaterally), normal capillary refill. Absent: cyanosis, clubbing, joint swelling, pallor, extremity cold to touch, amputation - Routine Skin Exam Present: intact, dry. Absent: pallor, mottling, petechiae - Routine Neurological Exam Present: alert, oriented X3, normal tone. Absent: sensory deficit, motor deficit, altered mental status - Detailed Neurological Exam: Coma Scale Eye Opening: Spontaneous Verbal Response: Oriented Motor Response: Obey commands [place] Coma Scale Total: 15 - Routine Psychiatric Exam Present: normal affect, cooperative - Constitutional no acute distress - Routine HEENT Exam Head: Present: normocephalic Eye: Present: EOMI, PERRL Results Procedures completed during hospitalization: none - Impressions ITS Impressions Hand X-Ray 01/25/18 00:00 CONCLUSION: Unremarkable study. Venous Doppler Study 01/25/18 00:00 CONCLUSION: 1. The study is negative for bilateral upper extremity deep venous thrombosis. Discharge Plan - Discharge Disposition Patient Disposition: 70 Transfer To Other Facility - Discharge Condition Condition: Stable - Discharge Order Discharge Orders: Discharge Order (Routine); Ordered 01/26/18 Ordered By: Vesna Ramirez - Discharge Details Anticipated Discharge Date: 01/26/18 Discharge Comment: Patient to be discharge to [facility] rehab, spoke to patient's sponsor Andre who will be picking patient up from the hospital - Physicians Team Primary Care Provider: UNKNOWN, Attending Provider: Neda Lim
== END 2018-01-26 13:17 | disposition short-term general hospital (02) ==
LOC: NEPFCDU 20:16 → NEDA 20:16 → NEPC 20:16 → NEPFCDU 01-24 16:49
PROVIDERS: ADMIT Family Medicine; ATTEND Family Medicine